=== PATIENT | male | born 1965 | race Caucasian/White ===

== ENCOUNTER 2021-06-17 21:40 | Inpatient (IN) | payer SELFPAY, OTHER ==
[~2021-06-17] VITALS: Ht 182.9 cm; Wt 96.4 kg
[2021-06-17 22:49] LABS: BASOPHILS % 0.2 % (0.0-1.0); HEMATOCRIT 38.7 % (38.2-49.6); HEMOGLOBIN 12.9 g/dL (14.0-18.0); LYMPHOCYTES # (AUTO) 0.8 (1.0-3.2); LYMPHOCYTES % 12.6 % (18.0-39.1); MEAN CORPUSCULAR HEMOGLOBIN 28.9 pg (28-32); MEAN CORPUSCULAR HGB CONC 33.3 g/dL (31-35); MEAN CORPUSCULAR VOLUME 86.6 fL (81-99); MONOCYTES # (AUTO) 0.3 (0.2-0.8); MONOCYTES % 4.1 % (4.4-11.3); NEUTROPHILS # (AUTO) 5.4 (2.1-6.9); NEUTROPHILS % 82.6 % (38.7-80.0); PLATELET COUNT 168 x10e3/uL (140-360); RED BLOOD COUNT 4.47 x10e6/uL (4.3-5.7)
[2021-06-17] MEDS ORDERED: IBUPROFEN 200 MG TAB ONE (22:52)
[2021-06-17] MEDS ORDERED: ACETAMINOPHEN 325 MG TAB ONE (22:52)
[2021-06-17] MEDS ORDERED: IBUPROFEN 600 MG TAB ONE (22:53)
[2021-06-17 23:11] LABS: ALBUMIN 3.1 g/dL (3.5-5.0); ALBUMIN/GLOBULIN RATIO 0.9 (0.8-2.0); ANION GAP 16.5 mmol/L (8-16); CALCIUM 8.5 mg/dL (8.4-10.2); CREATININE, SERUM 1.29 mg/dL (0.72-1.25); POTASSIUM 3.5 mmol/L (3.5-5.1)
[2021-06-17 23:17] LABS: CREATINE KINASE MB 0.8 ng/mL (0-5.0)
[2021-06-18] MEDS ORDERED: DEXTROSE 50% SYRINGE 50 ML IV PRN (09:00)
[2021-06-18] MEDS ORDERED: SODIUM CHLORIDE 0.9% 1000ML 1,000 ML IV ONE (09:15)
[2021-06-18] MEDS: ENOXAPARIN SOD INJ 40 MG/0.4 ML SYR SC SCH ×2 (09:45→16:20)
[2021-06-18] MEDS: CEFTRIAXONE 2 GM in SODIUM CHLORIDE 0.9% 100 ML IV SCH (09:45)
[2021-06-18] MEDS: ZINC SULFATE 220 MG CAP PO SCH (11:05)
[2021-06-18] MEDS: ASCORBIC ACID 500 MG TAB PO SCH ×2 (11:05→16:20)
[2021-06-18] MEDS: ACETAMINOPHEN 325 MG TAB PO PRN (11:05)
[2021-06-18] MEDS ORDERED: ETOMIDATE 2 MG/ML 10 ML INJ IV ONE (12:08)
[2021-06-18] MEDS ORDERED: VECURONIUM BROMIDE FOR INJ 20 MG VIAL ONE (12:08)
[2021-06-18] MEDS ORDERED: SUCCINYLCHOLINE CHLORIDE 20 MG/ML 10ML VIAL ONE (12:08)
[2021-06-18] MEDS ORDERED: MIDAZOLAM HCL 2 MG/2 ML VIAL ONE (12:08)
[2021-06-18] MEDS ORDERED: WATER STERILE 10 ML VIAL ONE (12:08)
[2021-06-18] MEDS: INSULIN REGULAR, HUMAN 100 UNIT/1 ML SQ SCH ×3 (12:09→21:00)
[2021-06-18] MEDS ORDERED: REMDESIVIR 200MG 200 MG IV ONE (14:00)
[2021-06-18] MEDS: FAMOTIDINE 20 MG/2 ML VIAL IV SCH (16:20)
[2021-06-18] MEDS: ZOLPIDEM TARTRATE 5 MG TAB PO PRN (16:20)
[2021-06-19] MEDS: METOPROLOL TARTRATE 50 MG TAB PO SCH ×3 (02:00→17:54)
[2021-06-19] MEDS ORDERED: METOPROLOL TARTRATE 50 MG TAB ONE (02:08)
[2021-06-19] MEDS: ZINC SULFATE 220 MG CAP PO SCH (07:24)
[2021-06-19] MEDS: ENOXAPARIN SOD INJ 40 MG/0.4 ML SYR SC SCH ×2 (07:24→17:54)
[2021-06-19] MEDS: CEFTRIAXONE 2 GM in SODIUM CHLORIDE 0.9% 100 ML IV SCH (07:24)
[2021-06-19] MEDS: ASCORBIC ACID 500 MG TAB PO SCH ×2 (07:24→17:54)
[2021-06-19] MEDS: FAMOTIDINE 20 MG/2 ML VIAL IV SCH ×2 (07:24→17:54)
[2021-06-19] MEDS: INSULIN REGULAR, HUMAN 100 UNIT/1 ML SQ SCH ×4 (07:25→21:00)
[2021-06-19 08:14] LABS: BASOPHILS % 0.3 % (0.0-1.0); EOSINOPHILS % 0.2 % (0.0-6.0); HEMATOCRIT 37.9 % (38.2-49.6); HEMOGLOBIN 12.6 g/dL (14.0-18.0); LYMPHOCYTES # (AUTO) 0.7 (1.0-3.2); LYMPHOCYTES % 10.8 % (18.0-39.1); MEAN CORPUSCULAR HEMOGLOBIN 28.8 pg (28-32); MEAN CORPUSCULAR HGB CONC 33.2 g/dL (31-35); MEAN CORPUSCULAR VOLUME 86.7 fL (81-99); MONOCYTES # (AUTO) 0.2 (0.2-0.8); NEUTROPHILS # (AUTO) 5.1 (2.1-6.9); PLATELET COUNT 208 x10e3/uL (140-360); RED BLOOD COUNT 4.37 x10e6/uL (4.3-5.7); RED CELL DISTRIBUTION WIDTH 12.2 % (11.7-14.4)
[2021-06-19 08:37] LABS: ALBUMIN 2.8 g/dL (3.5-5.0); ALBUMIN/GLOBULIN RATIO 0.8 (0.8-2.0); ANION GAP 17.2 mmol/L (8-16); CALCIUM 8.4 mg/dL (8.4-10.2); CREATININE, SERUM 1.17 mg/dL (0.72-1.25); POTASSIUM 3.2 mmol/L (3.5-5.1)
[2021-06-19] MEDS: REMDESIVIR 100MG 100 MG IV SCH (13:13)
[2021-06-19] MEDS: ZOLPIDEM TARTRATE 5 MG TAB PO PRN (17:54)
[2021-06-19] MEDS: ACETAMINOPHEN 325 MG TAB PO PRN ×2 (17:54→22:30)
[2021-06-19] MEDS ORDERED: BARICITINIB 2 MG TABLET PO SCH (18:30)
[2021-06-19 20:50] VITALS: BP 145/90
[2021-06-19 21:00] VITALS: BP 145/90
[2021-06-19 21:11] VITALS: BP 136/68
[2021-06-19 23:00] VITALS: BP 160/90
[2021-06-20] VITALS (15 sets, daily range): BP systolic 75–144; BP diastolic 48–93
[2021-06-20] MEDS ORDERED: DEXMEDETOMIDINE 200MCG/NS 50ML 50 ML IV SCH
[2021-06-20] MEDS ORDERED: GUAIFENESIN/CODEINE 10 ML CUP PO PRN (04:30)
[2021-06-20 05:23] LABS: BASOPHILS % 0.3 % (0.0-1.0); EOSINOPHILS % 0.4 % (0.0-6.0); HEMOGLOBIN 11.4 g/dL (14.0-18.0); LYMPHOCYTES # (AUTO) 0.8 (1.0-3.2); LYMPHOCYTES % 11.8 % (18.0-39.1); MEAN CORPUSCULAR HEMOGLOBIN 28.9 pg (28-32); MEAN CORPUSCULAR HGB CONC 33.5 g/dL (31-35); MEAN CORPUSCULAR VOLUME 86.3 fL (81-99); MONOCYTES # (AUTO) 0.2 (0.2-0.8); NEUTROPHILS # (AUTO) 5.9 (2.1-6.9); NEUTROPHILS % 83.6 % (38.7-80.0); PLATELET COUNT 251 x10e3/uL (140-360); RED BLOOD COUNT 3.94 x10e6/uL (4.3-5.7); RED CELL DISTRIBUTION WIDTH 12.2 % (11.7-14.4)
[2021-06-20 06:02] LABS: ALBUMIN 2.4 g/dL (3.5-5.0); ALBUMIN/GLOBULIN RATIO 0.8 (0.8-2.0); ANION GAP 15.1 mmol/L (8-16); CALCIUM 7.7 mg/dL (8.4-10.2); CREATININE, SERUM 0.94 mg/dL (0.72-1.25); POTASSIUM 3.1 mmol/L (3.5-5.1)
[2021-06-20] MEDS: INSULIN REGULAR, HUMAN 100 UNIT/1 ML SQ SCH ×4 (07:30→20:54)
[2021-06-20] MEDS: METOPROLOL TARTRATE 50 MG TAB PO SCH ×2 (09:00→17:00)
[2021-06-20] MEDS: BARICITINIB 2 MG TABLET PO SCH (09:00)
[2021-06-20] MEDS: ASCORBIC ACID 500 MG TAB PO SCH ×2 (09:00→17:00)
[2021-06-20] MEDS: ZINC SULFATE 220 MG CAP PO SCH (09:00)
[2021-06-20] MEDS ORDERED: POTASSIUM CHLORIDE 20MEQ/100ML 200 ML IV ONE (09:15)
[2021-06-20] MEDS: FENTANYL 2000MCG/NS 250 250 ML IV SCH ×2 (10:46→20:46)
[2021-06-20] MEDS: MIDAZOLAM HCL 5MG/ML 10ML VIAL 100 ML IV SCH ×2 (10:49→17:54)
[2021-06-20] MEDS: CEFTRIAXONE 2 GM in SODIUM CHLORIDE 0.9% 100 ML IV SCH (11:01)
[2021-06-20] MEDS ORDERED: SODIUM CHLORIDE 0.9% 250ML 250 ML ONE ×2 (11:09→21:47)
[2021-06-20] MEDS: FAMOTIDINE 20 MG/2 ML VIAL IV SCH ×2 (12:01→18:40)
[2021-06-20] MEDS: ENOXAPARIN SOD INJ 40 MG/0.4 ML SYR SC SCH ×2 (12:01→19:39)
[2021-06-20] MEDS ORDERED: LACTATED RINGER'S 500 ML INJ ONE (12:15)
[2021-06-20] MEDS ORDERED: ACETAMINOPHEN 650 MG SUPP PR PRN (12:45)
[2021-06-20] MEDS: ROCURONIUM 1250MG/NS 250 250 ML IV SCH (13:15)
[2021-06-20] MEDS: NOREPINEPHRINE 8 MG/D5W 250 ML 250 ML IV SCH (13:45)
[2021-06-20 15:36] LABS: ABG HCO3 30 mmol/L (22-26); ABG PCO2 46 mmHg (35-45); ABG PH 7.42 (7.35-7.45); ABG PO2 63 mmHg (80-105)
[2021-06-20 15:37] LABS: ABG TCO2 31
[2021-06-20] MEDS: REMDESIVIR 100MG 100 MG IV SCH (20:32)
[2021-06-20] MEDS: DEXAMETHASONE SOD PHOS 10 MG/1 ML VIAL IV SCH (21:59)
[2021-06-21] VITALS (27 sets, daily range): BP systolic 99–135; BP diastolic 61–80
[2021-06-21] MEDS: MIDAZOLAM HCL 5MG/ML 10ML VIAL 100 ML IV SCH ×5 (01:07→23:30)
[2021-06-21] MEDS: FENTANYL 2000MCG/NS 250 250 ML IV SCH ×3 (04:02→22:21)
[2021-06-21 04:55] LABS: BASOPHILS % 0.2 % (0.0-1.0); EOSINOPHILS % 0.2 % (0.0-6.0); HEMATOCRIT 33.2 % (38.2-49.6); HEMOGLOBIN 10.4 g/dL (14.0-18.0); LYMPHOCYTES # (AUTO) 0.5 (1.0-3.2); LYMPHOCYTES % 5.1 % (18.0-39.1); MEAN CORPUSCULAR HEMOGLOBIN 28.4 pg (28-32); MEAN CORPUSCULAR HGB CONC 31.3 g/dL (31-35); MEAN CORPUSCULAR VOLUME 90.7 fL (81-99); MONOCYTES # (AUTO) 0.2 (0.2-0.8); MONOCYTES % 1.8 % (4.4-11.3); NEUTROPHILS # (AUTO) 9.1 (2.1-6.9); NEUTROPHILS % 91.9 % (38.7-80.0); PLATELET COUNT 260 x10e3/uL (140-360); RED BLOOD COUNT 3.66 x10e6/uL (4.3-5.7); RED CELL DISTRIBUTION WIDTH 13.1 % (11.7-14.4)
[2021-06-21 05:37] LABS: ALBUMIN 2.2 g/dL (3.5-5.0); ALBUMIN/GLOBULIN RATIO 0.6 (0.8-2.0); ANION GAP 22.2 mmol/L (8-16); CALCIUM 7.9 mg/dL (8.4-10.2); POTASSIUM 4.2 mmol/L (3.5-5.1)
[2021-06-21] MEDS: ROCURONIUM 1250MG/NS 250 250 ML IV SCH (05:47)
[2021-06-21] MEDS: NOREPINEPHRINE 8 MG/D5W 250 ML 250 ML IV SCH (05:48)
[2021-06-21] MEDS: ENOXAPARIN SOD INJ 40 MG/0.4 ML SYR SC SCH (08:16)
[2021-06-21] MEDS: ASCORBIC ACID 500 MG TAB PO SCH ×2 (08:16→16:05)
[2021-06-21] MEDS: ZINC SULFATE 220 MG CAP PO SCH (08:16)
[2021-06-21] MEDS: FAMOTIDINE 20 MG/2 ML VIAL IV SCH ×2 (08:16→16:04)
[2021-06-21] MEDS: BARICITINIB 2 MG TABLET PO SCH (08:16)
[2021-06-21] MEDS: INSULIN REGULAR, HUMAN 100 UNIT/1 ML SQ SCH ×4 (08:17→20:43)
[2021-06-21] MEDS: METOPROLOL TARTRATE 50 MG TAB PO SCH ×2 (08:26→16:05)
[2021-06-21 08:53] LABS: LYMPHOCYTES % (MANUAL) 1 % (19-48); NEUTROPHILS % (MANUAL) 97 % (40-74); PLATELET ESTIMATE ADEQUATE; PLATELET MORPHOLOGY COMMENT FEW LARGE
[2021-06-21] MEDS ORDERED: SODIUM CHLORIDE 0.9% 250ML 250 ML ONE (09:27)
[2021-06-21] MEDS: CEFTRIAXONE 2 GM in SODIUM CHLORIDE 0.9% 100 ML IV SCH (10:12)
[2021-06-21 12:24] LABS: ALBUMIN 2.1 g/dL (3.5-5.0); ALBUMIN/GLOBULIN RATIO 0.6 (0.8-2.0); CALCIUM 7.8 mg/dL (8.4-10.2); CREATININE, SERUM 3.67 mg/dL (0.72-1.25)
[2021-06-21] MEDS: REMDESIVIR 100MG 100 MG IV SCH (13:37)
[2021-06-21] MEDS ORDERED: HEPARIN 25,000 UNIT 1,500 UNIT in DEXTROSE 5% 250ML 250 ML IV SCH (15:00)
[2021-06-21] MEDS: LACTATED RINGER'S 1,000 ML INJ SCH (16:06)
[2021-06-21 16:31] LABS: ABG HCO3 26 mmol/L (22-26); ABG PCO2 44 mmHg (35-45); ABG PH 7.38 (7.35-7.45); ABG PO2 317 mmHg (80-105); ABG TCO2 27
[2021-06-21 16:52] LABS: INR 1.31; PROTHROMBIN TIME 16.5 seconds (11.9-14.5)
[2021-06-21 16:53] LABS: PARTIAL THROMBOPLASTIN TIME 42.6 seconds (23.8-35.5)
[2021-06-21] MEDS: DEXAMETHASONE SOD PHOS 10 MG/1 ML VIAL IV SCH (20:41)
[2021-06-22] VITALS (24 sets, daily range): BP systolic 110–147; BP diastolic 63–82
[2021-06-22] MEDS: FENTANYL 2000MCG/NS 250 250 ML IV SCH ×2 (04:35→14:07)
[2021-06-22] MEDS: ROCURONIUM 1250MG/NS 250 250 ML IV SCH (04:36)
[2021-06-22] MEDS: MIDAZOLAM HCL 5MG/ML 10ML VIAL 100 ML IV SCH ×3 (05:00→17:41)
[2021-06-22] MEDS: LACTATED RINGER'S 1,000 ML INJ SCH (05:06)
[2021-06-22 06:13] LABS: BASOPHILS % 0.1 % (0.0-1.0); EOSINOPHILS % 0.1 % (0.0-6.0); HEMATOCRIT 30.1 % (38.2-49.6); HEMOGLOBIN 9.7 g/dL (14.0-18.0); LYMPHOCYTES # (AUTO) 0.6 (1.0-3.2); LYMPHOCYTES % 7.1 % (18.0-39.1); MEAN CORPUSCULAR HEMOGLOBIN 28.5 pg (28-32); MEAN CORPUSCULAR HGB CONC 32.2 g/dL (31-35); MEAN CORPUSCULAR VOLUME 88.5 fL (81-99); MONOCYTES # (AUTO) 0.3 (0.2-0.8); MONOCYTES % 3.7 % (4.4-11.3); NEUTROPHILS # (AUTO) 7.5 (2.1-6.9); NEUTROPHILS % 88.2 % (38.7-80.0); PLATELET COUNT 259 x10e3/uL (140-360); RED CELL DISTRIBUTION WIDTH 13.2 % (11.7-14.4)
[2021-06-22] MEDS ORDERED: FUROSEMIDE INJ 10 MG/ML 4 ML VIAL IV ONE (06:28)
[2021-06-22 06:34] LABS: CLARITY,URINE CLOUDY (CLEAR); COLOR,URINE YELLOW (YELLOW); LEUKOCYTE ESTERASE ,URINE NEGATIVE (NEGATIVE); NITRITE,URINE NEGATIVE (NEGATIVE)
[2021-06-22 06:35] LABS: KETONES,URINE NEGATIVE (NEGATIVE); PROTEIN,URINE DIPSTICK 1+ (NEGATIVE); URINE UROBILINOGEN 0.2 mg/dL (0.2 - 1)
[2021-06-22 06:43] LABS: ALBUMIN/GLOBULIN RATIO 0.6 (0.8-2.0); ANION GAP 19.7 mmol/L (8-16); CREATININE, SERUM 4.81 mg/dL (0.72-1.25); POTASSIUM 3.7 mmol/L (3.5-5.1)
[2021-06-22 06:53] LABS: BACTERIA,URINE RARE /HPF; EPITHELIAL CELLS,URINE FEW /LPF
[2021-06-22] MEDS: INSULIN REGULAR, HUMAN 100 UNIT/1 ML SQ SCH (07:10)
[2021-06-22 08:23] LABS: EOSINOPHIL SMEAR,URINE NONE SEEN (NONE SEEN)
[2021-06-22 08:47] LABS: ABG HCO3 25 mmol/L (22-26); ABG PCO2 38 mmHg (35-45); ABG PH 7.42 (7.35-7.45); ABG PO2 194 mmHg (80-105); ABG TCO2 26
[2021-06-22] MEDS ORDERED: LACTATED RINGER'S 1,000 ML INJ ONE (10:00)
[2021-06-22] MEDS ORDERED: FUROSEMIDE INJ 10 MG/ML 4 ML VIAL IV NR (10:00)
[2021-06-22] MEDS ORDERED: INSULIN GLARGINE 100 UNITS/ML VIAL SQ NR (10:15)
[2021-06-22] MEDS ORDERED: DEXTROSE 50% SYRINGE 50 ML IV PRN (10:15)
[2021-06-22] MEDS: ASCORBIC ACID 500 MG TAB PO SCH ×2 (11:18→17:23)
[2021-06-22] MEDS: ZINC SULFATE 220 MG CAP PO SCH (11:18)
[2021-06-22] MEDS: METOPROLOL TARTRATE 50 MG TAB PO SCH ×2 (11:18→17:24)
[2021-06-22] MEDS: BARICITINIB 2 MG TABLET PO SCH (11:18)
[2021-06-22] MEDS: FAMOTIDINE 20 MG/2 ML VIAL IV SCH ×2 (11:18→17:23)
[2021-06-22] MEDS: CEFTRIAXONE 2 GM in SODIUM CHLORIDE 0.9% 100 ML IV SCH (11:18)
[2021-06-22] MEDS: HEPARIN SOD (PORCINE) 5,000 UNIT/ML VIAL SC SCH ×2 (11:19→20:50)
[2021-06-22] MEDS: INSULIN LISPRO 100 UNIT/1 ML 3ML VIAL SQ SCH ×3 (12:00→20:52)
[2021-06-22] MEDS: NOREPINEPHRINE 8 MG/D5W 250 ML 250 ML IV SCH (13:45)
[2021-06-22] MEDS: INSULIN GLARGINE 100 UNITS/ML VIAL SQ SCH (17:40)
[2021-06-22] MEDS: DEXAMETHASONE SOD PHOS 10 MG/1 ML VIAL IV SCH (20:42)
[2021-06-23] VITALS (22 sets, daily range): BP systolic 115–147; BP diastolic 57–93
[2021-06-23] MEDS: FENTANYL 2000MCG/NS 250 250 ML IV SCH ×2 (04:04→18:18)
[2021-06-23] MEDS: MIDAZOLAM HCL 5MG/ML 10ML VIAL 100 ML IV SCH ×4 (05:15→21:26)
[2021-06-23 05:52] LABS: BASOPHILS % 0.2 % (0.0-1.0); HEMOGLOBIN 7.9 g/dL (14.0-18.0); LYMPHOCYTES # (AUTO) 0.7 (1.0-3.2); LYMPHOCYTES % 10.2 % (18.0-39.1); MEAN CORPUSCULAR HEMOGLOBIN 28.6 pg (28-32); MEAN CORPUSCULAR HGB CONC 31.6 g/dL (31-35); MEAN CORPUSCULAR VOLUME 90.6 fL (81-99); MONOCYTES # (AUTO) 0.3 (0.2-0.8); MONOCYTES % 4.8 % (4.4-11.3); NEUTROPHILS # (AUTO) 5.3 (2.1-6.9); PLATELET COUNT 232 x10e3/uL (140-360); RED BLOOD COUNT 2.76 x10e6/uL (4.3-5.7); RED CELL DISTRIBUTION WIDTH 13.3 % (11.7-14.4)
[2021-06-23 06:04] LABS: ALBUMIN 1.6 g/dL (3.5-5.0); ALBUMIN/GLOBULIN RATIO 0.7 (0.8-2.0); ANION GAP 15.2 mmol/L (8-16); CREATININE, SERUM 4.02 mg/dL (0.72-1.25); POTASSIUM 3.2 mmol/L (3.5-5.1)
[2021-06-23] MEDS: INSULIN LISPRO 100 UNIT/1 ML 3ML VIAL SQ SCH ×4 (06:12→23:59)
[2021-06-23 06:15] LABS: CALCIUM 6.5 mg/dL (8.4-10.2)
[2021-06-23 06:20] LABS: MAGNESIUM 2.3 MG/DL (1.3-2.1)
[2021-06-23 06:41] LABS: THYROID STIMULATING HORMONE 0.103 uIU/mL (0.350-4.940)
[2021-06-23] MEDS: METOPROLOL TARTRATE 50 MG TAB PO SCH ×2 (08:50→17:00)
[2021-06-23] MEDS: FAMOTIDINE 20 MG/2 ML VIAL IV SCH ×2 (08:50→17:00)
[2021-06-23] MEDS: ASCORBIC ACID 500 MG TAB PO SCH ×2 (08:50→18:21)
[2021-06-23] MEDS: ZINC SULFATE 220 MG CAP PO SCH (08:50)
[2021-06-23] MEDS: HEPARIN SOD (PORCINE) 5,000 UNIT/ML VIAL SC SCH ×2 (09:26→21:23)
[2021-06-23 09:33] LABS: ABG HCO3 23 mmol/L (22-26); ABG PCO2 37 mmHg (35-45); ABG PH 7.41 (7.35-7.45); ABG PO2 83 mmHg (80-105); ABG TCO2 24
[2021-06-23] MEDS ORDERED: POTASSIUM CHLORIDE 20MEQ/100ML 100 ML IV ONE (12:13)
[2021-06-23] MEDS: NOREPINEPHRINE 8 MG/D5W 250 ML 250 ML IV SCH (13:45)
[2021-06-23] MEDS: CALCIUM CARBONATE 500 MG CHEWABLE TABS PO SCH ×2 (15:09→21:20)
[2021-06-23] MEDS: DEXAMETHASONE SOD PHOS 10 MG/1 ML VIAL IV SCH (21:20)
[2021-06-23] MEDS: INSULIN GLARGINE 100 UNITS/ML VIAL SQ SCH (21:24)
[2021-06-24] VITALS (29 sets, daily range): BP systolic 101–152; BP diastolic 59–91
[2021-06-24] MEDS: MIDAZOLAM HCL 5MG/ML 10ML VIAL 100 ML IV SCH ×4 (04:30→23:26)
[2021-06-24 05:41] LABS: BASOPHILS % 0.1 % (0.0-1.0); HEMATOCRIT 30.2 % (38.2-49.6); HEMOGLOBIN 9.4 g/dL (14.0-18.0); LYMPHOCYTES # (AUTO) 0.4 (1.0-3.2); LYMPHOCYTES % 4.7 % (18.0-39.1); MEAN CORPUSCULAR HEMOGLOBIN 28.7 pg (28-32); MEAN CORPUSCULAR HGB CONC 31.1 g/dL (31-35); MEAN CORPUSCULAR VOLUME 92.1 fL (81-99); MONOCYTES # (AUTO) 0.5 (0.2-0.8); MONOCYTES % 6.2 % (4.4-11.3); NEUTROPHILS # (AUTO) 6.7 (2.1-6.9); NEUTROPHILS % 84.2 % (38.7-80.0); PLATELET COUNT 274 x10e3/uL (140-360); RED BLOOD COUNT 3.28 x10e6/uL (4.3-5.7); RED CELL DISTRIBUTION WIDTH 13.5 % (11.7-14.4)
[2021-06-24] MEDS: INSULIN LISPRO 100 UNIT/1 ML 3ML VIAL SQ SCH ×4 (06:26→23:39)
[2021-06-24 06:37] LABS: ALBUMIN 2.1 g/dL (3.5-5.0); ALBUMIN/GLOBULIN RATIO 0.8 (0.8-2.0); ANION GAP 16.7 mmol/L (8-16); CALCIUM 7.8 mg/dL (8.4-10.2); CREATININE, SERUM 4.42 mg/dL (0.72-1.25); POTASSIUM 4.7 mmol/L (3.5-5.1)
[2021-06-24] MEDS: METOPROLOL TARTRATE 50 MG TAB PO SCH ×2 (09:00→17:00)
[2021-06-24] MEDS: ASCORBIC ACID 500 MG TAB PO SCH ×2 (09:11→17:23)
[2021-06-24] MEDS: FAMOTIDINE 20 MG/2 ML VIAL IV SCH ×2 (09:11→17:23)
[2021-06-24] MEDS: CALCIUM CARBONATE 500 MG CHEWABLE TABS PO SCH ×3 (09:11→21:44)
[2021-06-24] MEDS: ZINC SULFATE 220 MG CAP PO SCH (09:12)
[2021-06-24] MEDS: HEPARIN SOD (PORCINE) 5,000 UNIT/ML VIAL SC SCH ×2 (09:14→21:57)
[2021-06-24 10:18] LABS: ABG HCO3 24 mmol/L (22-26); ABG PCO2 43 mmHg (35-45); ABG PH 7.35 (7.35-7.45); ABG PO2 56 mmHg (80-105); ABG TCO2 25
[2021-06-24] MEDS: FENTANYL 2000MCG/NS 250 250 ML IV SCH (11:10)
[2021-06-24] MEDS: NOREPINEPHRINE 8 MG/D5W 250 ML 250 ML IV SCH (13:45)
[2021-06-24] MEDS ORDERED: SODIUM CHLORIDE 0.9% 1000ML 2,000 ML ONE (17:23)
[2021-06-24] MEDS ORDERED: SODIUM CHLORIDE 0.9% 1000ML 2,000 ML IV PRN (17:45)
[2021-06-24] MEDS ORDERED: MANNITOL 25% 12.5GM/50 ML VIAL IV PRN (17:45)
[2021-06-24] MEDS ORDERED: HEPARIN SOD (PORCINE) 1000 UNIT/ML SDV IV PRN (17:45)
[2021-06-24] MEDS: INSULIN GLARGINE 100 UNITS/ML VIAL SQ SCH (20:42)
[2021-06-24] MEDS: DEXAMETHASONE SOD PHOS 10 MG/1 ML VIAL IV SCH (21:44)
[2021-06-25] VITALS (25 sets, daily range): BP systolic 92–186; BP diastolic 58–100
[2021-06-25] MEDS: ACETAMINOPHEN 325 MG TAB PO PRN (05:04)
[2021-06-25 05:17] LABS: BASOPHILS % 0.1 % (0.0-1.0); EOSINOPHILS % 0.1 % (0.0-6.0); HEMATOCRIT 32.7 % (38.2-49.6); HEMOGLOBIN 10.3 g/dL (14.0-18.0); LYMPHOCYTES # (AUTO) 0.3 (1.0-3.2); LYMPHOCYTES % 3.2 % (18.0-39.1); MEAN CORPUSCULAR HEMOGLOBIN 28.7 pg (28-32); MEAN CORPUSCULAR HGB CONC 31.5 g/dL (31-35); MEAN CORPUSCULAR VOLUME 91.1 fL (81-99); MONOCYTES # (AUTO) 0.5 (0.2-0.8); MONOCYTES % 5.4 % (4.4-11.3); NEUTROPHILS # (AUTO) 7.6 (2.1-6.9); PLATELET COUNT 271 x10e3/uL (140-360); RED BLOOD COUNT 3.59 x10e6/uL (4.3-5.7); RED CELL DISTRIBUTION WIDTH 13.3 % (11.7-14.4)
[2021-06-25 05:21] LABS: ALBUMIN 2.8 g/dL (3.5-5.0); ALBUMIN/GLOBULIN RATIO 1.2 (0.8-2.0); ANION GAP 15.6 mmol/L (8-16); CREATININE, SERUM 2.97 mg/dL (0.72-1.25); POTASSIUM 4.6 mmol/L (3.5-5.1)
[2021-06-25] MEDS: INSULIN LISPRO 100 UNIT/1 ML 3ML VIAL SQ SCH ×4 (06:12→23:52)
[2021-06-25] MEDS: FENTANYL 2000MCG/NS 250 250 ML IV SCH ×2 (08:51→18:12)
[2021-06-25] MEDS: PROPOFOL IV EMULSION 10MG/ML 100 ML IV SCH ×3 (08:51→23:40)
[2021-06-25] MEDS: FAMOTIDINE 20 MG/2 ML VIAL IV SCH ×2 (08:52→17:14)
[2021-06-25] MEDS: METOPROLOL TARTRATE 50 MG TAB PO SCH ×2 (08:52→17:00)
[2021-06-25] MEDS: CALCIUM CARBONATE 500 MG CHEWABLE TABS PO SCH ×3 (08:52→21:30)
[2021-06-25] MEDS: ZINC SULFATE 220 MG CAP PO SCH (08:53)
[2021-06-25] MEDS: ASCORBIC ACID 500 MG TAB PO SCH ×2 (08:53→17:14)
[2021-06-25] MEDS: HEPARIN SOD (PORCINE) 5,000 UNIT/ML VIAL SC SCH ×2 (08:53→21:32)
[2021-06-25 09:02] LABS: ABG HCO3 26 mmol/L (22-26); ABG PCO2 47 mmHg (35-45); ABG PH 7.35 (7.35-7.45); ABG PO2 71 mmHg (80-105); ABG TCO2 27
[2021-06-25] MEDS: MIDAZOLAM HCL 5MG/ML 10ML VIAL 100 ML IV SCH ×2 (10:14→18:12)
[2021-06-25] MEDS: NOREPINEPHRINE 8 MG/D5W 250 ML 250 ML IV SCH (13:45)
[2021-06-25] MEDS ORDERED: GUAIFENESIN/CODEINE 5 ML LIQD PO PRN (18:00)
[2021-06-25] MEDS: DEXAMETHASONE SOD PHOS 10 MG/1 ML VIAL IV SCH (21:29)
[2021-06-25] MEDS: INSULIN GLARGINE 100 UNITS/ML VIAL SQ SCH (21:32)
[2021-06-26] VITALS (28 sets, daily range): BP systolic 94–135; BP diastolic 56–79
[2021-06-26] MEDS: FENTANYL 2000MCG/NS 250 250 ML IV SCH ×3 (01:17→16:34)
[2021-06-26] MEDS: MIDAZOLAM HCL 5MG/ML 10ML VIAL 100 ML IV SCH ×4 (02:45→19:38)
[2021-06-26] MEDS: PROPOFOL IV EMULSION 10MG/ML 100 ML IV SCH ×4 (05:55→23:07)
[2021-06-26 06:20] LABS: BASOPHILS % 0.1 % (0.0-1.0); EOSINOPHILS % 0.1 % (0.0-6.0); HEMOGLOBIN 8.6 g/dL (14.0-18.0); LYMPHOCYTES # (AUTO) 0.3 (1.0-3.2); MEAN CORPUSCULAR HEMOGLOBIN 28.6 pg (28-32); MEAN CORPUSCULAR HGB CONC 30.7 g/dL (31-35); MONOCYTES # (AUTO) 0.4 (0.2-0.8); MONOCYTES % 4.7 % (4.4-11.3); NEUTROPHILS # (AUTO) 7.4 (2.1-6.9); NEUTROPHILS % 86.4 % (38.7-80.0); PLATELET COUNT 215 x10e3/uL (140-360); RED BLOOD COUNT 3.01 x10e6/uL (4.3-5.7); RED CELL DISTRIBUTION WIDTH 13.3 % (11.7-14.4)
[2021-06-26] MEDS: INSULIN LISPRO 100 UNIT/1 ML 3ML VIAL SQ SCH ×3 (06:22→18:06)
[2021-06-26 07:55] LABS: ALBUMIN 2.5 g/dL (3.5-5.0); ANION GAP 15.5 mmol/L (8-16); CALCIUM 7.8 mg/dL (8.4-10.2); CREATININE, SERUM 2.5 mg/dL (0.72-1.25); POTASSIUM 4.5 mmol/L (3.5-5.1)
[2021-06-26] MEDS: METOPROLOL TARTRATE 50 MG TAB PO SCH ×2 (08:59→16:06)
[2021-06-26] MEDS: ZINC SULFATE 220 MG CAP PO SCH (09:23)
[2021-06-26] MEDS: ASCORBIC ACID 500 MG TAB PO SCH ×2 (09:23→17:03)
[2021-06-26] MEDS: FAMOTIDINE 20 MG/2 ML VIAL IV SCH ×2 (09:23→17:03)
[2021-06-26] MEDS: CALCIUM CARBONATE 500 MG CHEWABLE TABS PO SCH ×3 (09:23→21:32)
[2021-06-26 09:35] LABS: ABG PCO2 45 mmHg (35-45); ABG PH 7.42 (7.35-7.45); ABG PO2 133 mmHg (80-105)
[2021-06-26 09:36] LABS: ABG HCO3 29 mmol/L (22-26); ABG TCO2 30
[2021-06-26] MEDS: HEPARIN SOD (PORCINE) 5,000 UNIT/ML VIAL SC SCH ×2 (12:24→21:35)
[2021-06-26] MEDS: NOREPINEPHRINE 8 MG/D5W 250 ML 250 ML IV SCH (13:45)
[2021-06-26] MEDS: DEXAMETHASONE SOD PHOS 10 MG/1 ML VIAL IV SCH (21:31)
[2021-06-26] MEDS: INSULIN GLARGINE 100 UNITS/ML VIAL SQ SCH (21:34)
[2021-06-26] MEDS: ACETAMINOPHEN 325 MG TAB PO PRN (23:27)
[2021-06-27] VITALS (24 sets, daily range): BP systolic 104–140; BP diastolic 49–81
[2021-06-27] MEDS: INSULIN LISPRO 100 UNIT/1 ML 3ML VIAL SQ SCH ×5 (00:35→23:30)
[2021-06-27] MEDS: FENTANYL 2000MCG/NS 250 250 ML IV SCH ×3 (01:32→19:30)
[2021-06-27] MEDS: PROPOFOL IV EMULSION 10MG/ML 100 ML IV SCH ×6 (03:26→23:48)
[2021-06-27] MEDS: MIDAZOLAM HCL 5MG/ML 10ML VIAL 100 ML IV SCH ×3 (04:04→19:30)
[2021-06-27 06:42] LABS: BASOPHILS % 0.1 % (0.0-1.0); EOSINOPHILS % 0.1 % (0.0-6.0); HEMATOCRIT 28.7 % (38.2-49.6); HEMOGLOBIN 8.8 g/dL (14.0-18.0); LYMPHOCYTES # (AUTO) 0.5 (1.0-3.2); LYMPHOCYTES % 3.6 % (18.0-39.1); MEAN CORPUSCULAR HEMOGLOBIN 28.3 pg (28-32); MEAN CORPUSCULAR HGB CONC 30.7 g/dL (31-35); MEAN CORPUSCULAR VOLUME 92.3 fL (81-99); MONOCYTES # (AUTO) 0.5 (0.2-0.8); NEUTROPHILS # (AUTO) 11.1 (2.1-6.9); NEUTROPHILS % 87.5 % (38.7-80.0); PLATELET COUNT 266 x10e3/uL (140-360); RED BLOOD COUNT 3.11 x10e6/uL (4.3-5.7); RED CELL DISTRIBUTION WIDTH 13.3 % (11.7-14.4)
[2021-06-27 07:33] LABS: ALBUMIN 2.6 g/dL (3.5-5.0); ALBUMIN/GLOBULIN RATIO 0.9 (0.8-2.0); ANION GAP 15.6 mmol/L (8-16); CALCIUM 7.9 mg/dL (8.4-10.2); CREATININE, SERUM 2.13 mg/dL (0.72-1.25); POTASSIUM 4.6 mmol/L (3.5-5.1)
[2021-06-27] MEDS: METOPROLOL TARTRATE 50 MG TAB PO SCH ×2 (08:21→17:00)
[2021-06-27] MEDS: FAMOTIDINE 20 MG/2 ML VIAL IV SCH ×2 (08:21→17:06)
[2021-06-27] MEDS: CALCIUM CARBONATE 500 MG CHEWABLE TABS PO SCH ×3 (08:22→21:15)
[2021-06-27] MEDS: ZINC SULFATE 220 MG CAP PO SCH (08:22)
[2021-06-27] MEDS: ASCORBIC ACID 500 MG TAB PO SCH ×2 (08:22→17:06)
[2021-06-27] MEDS: HEPARIN SOD (PORCINE) 5,000 UNIT/ML VIAL SC SCH (08:31)
[2021-06-27] MEDS: NOREPINEPHRINE 8 MG/D5W 250 ML 250 ML IV SCH (13:01)
[2021-06-27] MEDS ORDERED: HEPARIN SOD (PORCINE) 1000 UNIT/ML SDV IV ONE (19:20)
[2021-06-27] MEDS ORDERED: HEPARIN 25,000 UNIT 1,500 UNIT in DEXTROSE 5% 250ML 250 ML IV SCH (19:30)
[2021-06-27] MEDS: INSULIN GLARGINE 100 UNITS/ML VIAL SQ SCH (21:15)
[2021-06-28] VITALS (27 sets, daily range): BP systolic 97–150; BP diastolic 50–97
[2021-06-28] MEDS: PROPOFOL IV EMULSION 10MG/ML 100 ML IV SCH ×6 (02:41→21:55)
[2021-06-28 06:08] LABS: BASOPHILS % 0.1 % (0.0-1.0); EOSINOPHILS # (AUTO) 0.1 (0.0-0.4); HEMATOCRIT 27.7 % (38.2-49.6); HEMOGLOBIN 8.4 g/dL (14.0-18.0); LYMPHOCYTES # (AUTO) 1.2 (1.0-3.2); LYMPHOCYTES % 9.1 % (18.0-39.1); MEAN CORPUSCULAR HEMOGLOBIN 28.7 pg (28-32); MEAN CORPUSCULAR HGB CONC 30.3 g/dL (31-35); MEAN CORPUSCULAR VOLUME 94.5 fL (81-99); MONOCYTES # (AUTO) 0.9 (0.2-0.8); MONOCYTES % 6.9 % (4.4-11.3); NEUTROPHILS # (AUTO) 9.9 (2.1-6.9); NEUTROPHILS % 78.4 % (38.7-80.0); PLATELET COUNT 300 x10e3/uL (140-360); RED BLOOD COUNT 2.93 x10e6/uL (4.3-5.7); RED CELL DISTRIBUTION WIDTH 13.6 % (11.7-14.4)
[2021-06-28] MEDS: FENTANYL 2000MCG/NS 250 250 ML IV SCH (06:15)
[2021-06-28] MEDS: INSULIN LISPRO 100 UNIT/1 ML 3ML VIAL SQ SCH ×3 (06:15→19:12)
[2021-06-28 06:36] LABS: ALBUMIN 2.6 g/dL (3.5-5.0); ANION GAP 14.6 mmol/L (8-16); CALCIUM 7.8 mg/dL (8.4-10.2); CREATININE, SERUM 2.39 mg/dL (0.72-1.25); POTASSIUM 3.6 mmol/L (3.5-5.1)
[2021-06-28] MEDS: MIDAZOLAM HCL 5MG/ML 10ML VIAL 100 ML IV SCH (08:22)
[2021-06-28] MEDS: METOPROLOL TARTRATE 50 MG TAB PO SCH ×2 (09:00→17:00)
[2021-06-28 09:25] LABS: ABG PCO2 38 mmHg (35-45); ABG PH 7.44 (7.35-7.45); ABG PO2 94 mmHg (80-105)
[2021-06-28 09:26] LABS: ABG HCO3 26 mmol/L (22-26); ABG TCO2 27
[2021-06-28] MEDS: FAMOTIDINE 20 MG/2 ML VIAL IV SCH ×2 (09:38→17:21)
[2021-06-28] MEDS: ASCORBIC ACID 500 MG TAB PO SCH ×2 (09:39→17:21)
[2021-06-28] MEDS: CALCIUM CARBONATE 500 MG CHEWABLE TABS PO SCH ×3 (09:39→21:23)
[2021-06-28] MEDS: ZINC SULFATE 220 MG CAP PO SCH (09:39)
[2021-06-28] MEDS: NOREPINEPHRINE 8 MG/D5W 250 ML 250 ML IV SCH (13:10)
[2021-06-28] MEDS: HEPARIN 25,000 UNIT 1,500 UNIT in DEXTROSE 5% 250ML 250 ML IV SCH (18:41)
[2021-06-28] MEDS: INSULIN GLARGINE 100 UNITS/ML VIAL SQ SCH (21:24)
[2021-06-29] VITALS (26 sets, daily range): BP systolic 119–157; BP diastolic 67–93
[2021-06-29] MEDS: INSULIN LISPRO 100 UNIT/1 ML 3ML VIAL SQ SCH ×5 (00:06→23:58)
[2021-06-29] MEDS: PROPOFOL IV EMULSION 10MG/ML 100 ML IV SCH ×8 (00:31→21:33)
[2021-06-29] MEDS: FENTANYL 2000MCG/NS 250 250 ML IV SCH (00:36)
[2021-06-29] MEDS: MIDAZOLAM HCL 5MG/ML 10ML VIAL 100 ML IV SCH (02:49)
[2021-06-29 06:46] LABS: BASOPHILS % 0.2 % (0.0-1.0); EOSINOPHILS # (AUTO) 0.1 (0.0-0.4); EOSINOPHILS % 0.8 % (0.0-6.0); HEMATOCRIT 30.6 % (38.2-49.6); HEMOGLOBIN 9.6 g/dL (14.0-18.0); LYMPHOCYTES # (AUTO) 1.2 (1.0-3.2); LYMPHOCYTES % 6.6 % (18.0-39.1); MEAN CORPUSCULAR HGB CONC 31.4 g/dL (31-35); MEAN CORPUSCULAR VOLUME 92.4 fL (81-99); MONOCYTES # (AUTO) 1.4 (0.2-0.8); MONOCYTES % 7.9 % (4.4-11.3); PLATELET COUNT 356 x10e3/uL (140-360); RED BLOOD COUNT 3.31 x10e6/uL (4.3-5.7); RED CELL DISTRIBUTION WIDTH 13.7 % (11.7-14.4)
[2021-06-29 07:03] LABS: ALBUMIN 2.7 g/dL (3.5-5.0); ALBUMIN/GLOBULIN RATIO 0.8 (0.8-2.0); ANION GAP 18.2 mmol/L (8-16); CALCIUM 8.3 mg/dL (8.4-10.2); CREATININE, SERUM 2.41 mg/dL (0.72-1.25); POTASSIUM 4.2 mmol/L (3.5-5.1)
[2021-06-29] MEDS: FAMOTIDINE 20 MG/2 ML VIAL IV SCH ×2 (08:58→18:57)
[2021-06-29] MEDS: METOPROLOL TARTRATE 50 MG TAB PO SCH ×2 (08:58→17:00)
[2021-06-29] MEDS: CALCIUM CARBONATE 500 MG CHEWABLE TABS PO SCH ×3 (08:59→20:43)
[2021-06-29] MEDS: ZINC SULFATE 220 MG CAP PO SCH (09:00)
[2021-06-29] MEDS: ASCORBIC ACID 500 MG TAB PO SCH ×2 (09:00→18:57)
[2021-06-29] MEDS: HEPARIN 25,000 UNIT 1,500 UNIT in DEXTROSE 5% 250ML 250 ML IV SCH ×2 (11:17→19:07)
[2021-06-29] MEDS: NOREPINEPHRINE 8 MG/D5W 250 ML 250 ML IV SCH (16:55)
[2021-06-29 18:22] LABS: BASOPHILS % 0.2 % (0.0-1.0); EOSINOPHILS # (AUTO) 0.1 (0.0-0.4); EOSINOPHILS % 0.5 % (0.0-6.0); HEMATOCRIT 33.7 % (38.2-49.6); HEMOGLOBIN 10.5 g/dL (14.0-18.0); LYMPHOCYTES # (AUTO) 0.7 (1.0-3.2); LYMPHOCYTES % 3.8 % (18.0-39.1); MEAN CORPUSCULAR HEMOGLOBIN 28.9 pg (28-32); MEAN CORPUSCULAR HGB CONC 31.2 g/dL (31-35); MEAN CORPUSCULAR VOLUME 92.8 fL (81-99); MONOCYTES # (AUTO) 1.5 (0.2-0.8); MONOCYTES % 7.8 % (4.4-11.3); NEUTROPHILS # (AUTO) 16.4 (2.1-6.9); NEUTROPHILS % 84.2 % (38.7-80.0); PLATELET COUNT 399 x10e3/uL (140-360); RED BLOOD COUNT 3.63 x10e6/uL (4.3-5.7); RED CELL DISTRIBUTION WIDTH 13.9 % (11.7-14.4)
[2021-06-29 18:36] LABS: AMYLASE 57 U/L (25-125); LIPASE 58 U/L (8-78)
[2021-06-29] MEDS: INSULIN GLARGINE 100 UNITS/ML VIAL SQ SCH (20:44)
[2021-06-30] VITALS (25 sets, daily range): BP systolic 123–183; BP diastolic 56–99
[2021-06-30] MEDS: PROPOFOL IV EMULSION 10MG/ML 100 ML IV SCH ×7 (00:58→22:25)
[2021-06-30] MEDS: HEPARIN 25,000 UNIT 1,500 UNIT in DEXTROSE 5% 250ML 250 ML IV SCH ×3 (01:40→20:55)
[2021-06-30] MEDS: INSULIN LISPRO 100 UNIT/1 ML 3ML VIAL SQ SCH ×3 (05:48→18:46)
[2021-06-30 06:46] LABS: BASOPHILS % 0.1 % (0.0-1.0); EOSINOPHILS # (AUTO) 0.1 (0.0-0.4); EOSINOPHILS % 0.8 % (0.0-6.0); HEMATOCRIT 30.7 % (38.2-49.6); HEMOGLOBIN 9.3 g/dL (14.0-18.0); LYMPHOCYTES # (AUTO) 0.8 (1.0-3.2); LYMPHOCYTES % 4.9 % (18.0-39.1); MEAN CORPUSCULAR HEMOGLOBIN 28.1 pg (28-32); MEAN CORPUSCULAR HGB CONC 30.3 g/dL (31-35); MEAN CORPUSCULAR VOLUME 92.7 fL (81-99); MONOCYTES # (AUTO) 1.4 (0.2-0.8); MONOCYTES % 9.1 % (4.4-11.3); NEUTROPHILS # (AUTO) 12.8 (2.1-6.9); PLATELET COUNT 374 x10e3/uL (140-360); RED BLOOD COUNT 3.31 x10e6/uL (4.3-5.7); RED CELL DISTRIBUTION WIDTH 13.9 % (11.7-14.4)
[2021-06-30 07:17] LABS: ALBUMIN 2.9 g/dL (3.5-5.0); ALBUMIN/GLOBULIN RATIO 0.8 (0.8-2.0); ANION GAP 19.6 mmol/L (8-16); CALCIUM 8.9 mg/dL (8.4-10.2); CREATININE, SERUM 2.93 mg/dL (0.72-1.25); POTASSIUM 4.6 mmol/L (3.5-5.1)
[2021-06-30] MEDS: METOPROLOL TARTRATE 50 MG TAB PO SCH ×2 (09:00→15:51)
[2021-06-30] MEDS: FAMOTIDINE 20 MG/2 ML VIAL IV SCH ×2 (09:24→17:00)
[2021-06-30] MEDS: CALCIUM CARBONATE 500 MG CHEWABLE TABS PO SCH ×3 (09:25→21:08)
[2021-06-30] MEDS: ASCORBIC ACID 500 MG TAB PO SCH ×2 (09:25→17:00)
[2021-06-30] MEDS: ZINC SULFATE 220 MG CAP PO SCH (09:25)
[2021-06-30 10:32] LABS: ABG HCO3 29 mmol/L (22-26); ABG PCO2 55 mmHg (35-45); ABG PH 7.33 (7.35-7.45); ABG PO2 94 mmHg (80-105); ABG TCO2 30
[2021-06-30] MEDS: LORAZEPAM INJ 2 MG/ML VIAL IV PRN ×2 (13:18→21:33)
[2021-06-30] MEDS: INSULIN GLARGINE 100 UNITS/ML VIAL SQ SCH (21:09)
[2021-07-01] VITALS (24 sets, daily range): BP systolic 102–161; BP diastolic 59–92
[2021-07-01] MEDS: INSULIN LISPRO 100 UNIT/1 ML 3ML VIAL SQ SCH ×4 (00:16→18:15)
[2021-07-01] MEDS: PROPOFOL IV EMULSION 10MG/ML 100 ML IV SCH ×5 (01:45→21:20)
[2021-07-01] MEDS: LORAZEPAM INJ 2 MG/ML VIAL IV PRN ×3 (02:50→19:25)
[2021-07-01 06:18] LABS: BASOPHILS % 0.1 % (0.0-1.0); EOSINOPHILS # (AUTO) 0.1 (0.0-0.4); EOSINOPHILS % 0.9 % (0.0-6.0); HEMATOCRIT 28.9 % (38.2-49.6); HEMOGLOBIN 8.7 g/dL (14.0-18.0); LYMPHOCYTES # (AUTO) 0.9 (1.0-3.2); MEAN CORPUSCULAR HEMOGLOBIN 28.3 pg (28-32); MEAN CORPUSCULAR HGB CONC 30.1 g/dL (31-35); MEAN CORPUSCULAR VOLUME 94.1 fL (81-99); MONOCYTES # (AUTO) 1.2 (0.2-0.8); MONOCYTES % 8.4 % (4.4-11.3); NEUTROPHILS # (AUTO) 11.9 (2.1-6.9); NEUTROPHILS % 81.6 % (38.7-80.0); PLATELET COUNT 358 x10e3/uL (140-360); RED BLOOD COUNT 3.07 x10e6/uL (4.3-5.7); RED CELL DISTRIBUTION WIDTH 14.2 % (11.7-14.4)
[2021-07-01 07:00] LABS: ALBUMIN 2.8 g/dL (3.5-5.0); ALBUMIN/GLOBULIN RATIO 0.8 (0.8-2.0); ANION GAP 22.8 mmol/L (8-16); CALCIUM 8.9 mg/dL (8.4-10.2); POTASSIUM 4.8 mmol/L (3.5-5.1)
[2021-07-01 07:27] LABS: CREATININE, SERUM 4.39 mg/dL (0.72-1.25)
[2021-07-01] MEDS: FAMOTIDINE 20 MG/2 ML VIAL IV SCH ×2 (09:00→16:57)
[2021-07-01] MEDS: ASCORBIC ACID 500 MG TAB PO SCH ×2 (09:00→16:57)
[2021-07-01] MEDS: METOPROLOL TARTRATE 50 MG TAB PO SCH ×3 (09:00→18:57)
[2021-07-01] MEDS: ZINC SULFATE 220 MG CAP PO SCH (09:00)
[2021-07-01] MEDS: CALCIUM CARBONATE 500 MG CHEWABLE TABS PO SCH ×3 (09:00→20:51)
[2021-07-01] MEDS: HEPARIN 25,000 UNIT 1,500 UNIT in DEXTROSE 5% 250ML 250 ML IV SCH ×2 (20:29→23:30)
[2021-07-01] MEDS: INSULIN GLARGINE 100 UNITS/ML VIAL SQ SCH (20:52)
[2021-07-01] MEDS: ACETAMINOPHEN 325 MG TAB PO PRN (20:53)
[2021-07-02] VITALS (22 sets, daily range): BP systolic 101–156; BP diastolic 52–91
[2021-07-02] MEDS: INSULIN LISPRO 100 UNIT/1 ML 3ML VIAL SQ SCH ×4 (00:09→18:00)
[2021-07-02] MEDS: LORAZEPAM INJ 2 MG/ML VIAL IV PRN ×2 (00:45→05:34)
[2021-07-02] MEDS: PROPOFOL IV EMULSION 10MG/ML 100 ML IV SCH ×6 (00:45→22:57)
[2021-07-02 05:39] LABS: BASOPHILS % 0.2 % (0.0-1.0); EOSINOPHILS # (AUTO) 0.1 (0.0-0.4); EOSINOPHILS % 0.9 % (0.0-6.0); HEMATOCRIT 27.9 % (38.2-49.6); HEMOGLOBIN 9.2 g/dL (14.0-18.0); LYMPHOCYTES # (AUTO) 0.8 (1.0-3.2); LYMPHOCYTES % 5.9 % (18.0-39.1); MEAN CORPUSCULAR HEMOGLOBIN 30.3 pg (28-32); MEAN CORPUSCULAR VOLUME 91.8 fL (81-99); MONOCYTES # (AUTO) 1.2 (0.2-0.8); MONOCYTES % 9.3 % (4.4-11.3); NEUTROPHILS # (AUTO) 10.5 (2.1-6.9); NEUTROPHILS % 80.7 % (38.7-80.0); PLATELET COUNT 347 x10e3/uL (140-360); RED BLOOD COUNT 3.04 x10e6/uL (4.3-5.7); RED CELL DISTRIBUTION WIDTH 14.2 % (11.7-14.4)
[2021-07-02 06:11] LABS: ALBUMIN 2.7 g/dL (3.5-5.0); ALBUMIN/GLOBULIN RATIO 0.6 (0.8-2.0); ANION GAP 20.4 mmol/L (8-16); CALCIUM 8.6 mg/dL (8.4-10.2); CREATININE, SERUM 4.06 mg/dL (0.72-1.25); POTASSIUM 4.4 mmol/L (3.5-5.1)
[2021-07-02] MEDS: HEPARIN 25,000 UNIT 1,500 UNIT in DEXTROSE 5% 250ML 250 ML IV SCH ×3 (07:13→14:21)
[2021-07-02] MEDS: FAMOTIDINE 20 MG/2 ML VIAL IV SCH ×2 (07:26→17:14)
[2021-07-02] MEDS: METOPROLOL TARTRATE 50 MG TAB PO SCH ×2 (07:27→17:14)
[2021-07-02] MEDS: ASCORBIC ACID 500 MG TAB PO SCH ×2 (07:28→17:15)
[2021-07-02] MEDS: ZINC SULFATE 220 MG CAP PO SCH (07:28)
[2021-07-02] MEDS: CALCIUM CARBONATE 500 MG CHEWABLE TABS PO SCH ×3 (07:28→21:03)
[2021-07-02 09:49] LABS: ABG HCO3 27 mmol/L (22-26); ABG PCO2 43 mmHg (35-45); ABG PO2 116 mmHg (80-105); ABG TCO2 28
[2021-07-02] MEDS ORDERED: HEPARIN SOD (PORCINE) 1000 UNIT/ML SDV ONE (10:07)
[2021-07-02] MEDS: INSULIN GLARGINE 100 UNITS/ML VIAL SQ SCH (21:04)
[2021-07-03] VITALS (27 sets, daily range): BP systolic 108–179; BP diastolic 65–107
[2021-07-03] MEDS: LORAZEPAM INJ 2 MG/ML VIAL IV PRN ×2 (01:48→19:40)
[2021-07-03] MEDS: PROPOFOL IV EMULSION 10MG/ML 100 ML IV SCH ×2 (02:50→06:47)
[2021-07-03 04:21] LABS: BASOPHILS % 0.2 % (0.0-1.0); EOSINOPHILS # (AUTO) 0.2 (0.0-0.4); EOSINOPHILS % 1.5 % (0.0-6.0); HEMATOCRIT 25.9 % (38.2-49.6); HEMOGLOBIN 8.6 g/dL (14.0-18.0); LYMPHOCYTES # (AUTO) 0.6 (1.0-3.2); LYMPHOCYTES % 5.8 % (18.0-39.1); MEAN CORPUSCULAR HEMOGLOBIN 30.2 pg (28-32); MEAN CORPUSCULAR HGB CONC 33.2 g/dL (31-35); MEAN CORPUSCULAR VOLUME 90.9 fL (81-99); MONOCYTES # (AUTO) 0.9 (0.2-0.8); MONOCYTES % 8.9 % (4.4-11.3); NEUTROPHILS # (AUTO) 8.3 (2.1-6.9); NEUTROPHILS % 81.4 % (38.7-80.0); PLATELET COUNT 299 x10e3/uL (140-360); RED BLOOD COUNT 2.85 x10e6/uL (4.3-5.7); RED CELL DISTRIBUTION WIDTH 14.1 % (11.7-14.4)
[2021-07-03 04:32] LABS: ALBUMIN 2.6 g/dL (3.5-5.0); ALBUMIN/GLOBULIN RATIO 0.6 (0.8-2.0); ANION GAP 23.6 mmol/L (8-16); CALCIUM 8.9 mg/dL (8.4-10.2); POTASSIUM 4.6 mmol/L (3.5-5.1)
[2021-07-03] MEDS: INSULIN LISPRO 100 UNIT/1 ML 3ML VIAL SQ SCH ×4 (06:45→18:00)
[2021-07-03] MEDS ORDERED: ALBUMIN 25% 12.5GM 0.25 GM/ML BTL IV PRN (08:30)
[2021-07-03] MEDS ORDERED: SODIUM CHLORIDE 0.9% 1000ML 2,000 ML IV PRN (08:30)
[2021-07-03] MEDS ORDERED: SODIUM CHLORIDE 0.9% 250ML 500 ML IV PRN (08:30)
[2021-07-03] MEDS ORDERED: HEPARIN SOD (PORCINE) 1000 UNIT/ML SDV IV PRN (08:30)
[2021-07-03] MEDS: FAMOTIDINE 20 MG/2 ML VIAL IV SCH ×2 (09:11→16:51)
[2021-07-03] MEDS: METOPROLOL TARTRATE 50 MG TAB PO SCH ×2 (09:12→16:51)
[2021-07-03] MEDS: ZINC SULFATE 220 MG CAP PO SCH (09:12)
[2021-07-03] MEDS: ASCORBIC ACID 500 MG TAB PO SCH ×2 (09:12→16:51)
[2021-07-03] MEDS: CALCIUM CARBONATE 500 MG CHEWABLE TABS PO SCH ×3 (09:12→21:41)
[2021-07-03] MEDS: ACETAMINOPHEN 325 MG TAB PO PRN (09:13)
[2021-07-03] MEDS: PROPOFOL IV EMULSION 50 ML IV SCH (11:45)
[2021-07-03 11:54] LABS: ABG PCO2 41 mmHg (35-45); ABG PH 7.35 (7.35-7.45); ABG PO2 138 mmHg (80-105)
[2021-07-03 11:55] LABS: ABG HCO3 23 mmol/L (22-26); ABG TCO2 24
[2021-07-03] MEDS: HEPARIN 25,000 UNIT 1,500 UNIT in DEXTROSE 5% 250ML 250 ML IV SCH ×2 (13:55→23:00)
[2021-07-03] MEDS: DEXMEDETOMIDINE 400MCG/NS100ML 100 ML IV PRN (15:50)
[2021-07-03] MEDS: INSULIN GLARGINE 100 UNITS/ML VIAL SQ SCH (21:42)
[2021-07-04] VITALS (29 sets, daily range): BP systolic 119–186; BP diastolic 73–108
[2021-07-04] MEDS: INSULIN LISPRO 100 UNIT/1 ML 3ML VIAL SQ SCH ×4 (00:12→17:52)
[2021-07-04] MEDS: HYDRALAZINE HCL 20 MG/ML VIAL IV PRN ×2 (01:33→13:42)
[2021-07-04] MEDS ORDERED: HYDRALAZINE HCL 20 MG/ML VIAL ONE (01:41)
[2021-07-04] MEDS: DEXMEDETOMIDINE 400MCG/NS100ML 100 ML IV PRN ×5 (04:21→20:16)
[2021-07-04 06:49] LABS: BASOPHILS % 0.2 % (0.0-1.0); EOSINOPHILS # (AUTO) 0.1 (0.0-0.4); EOSINOPHILS % 1.4 % (0.0-6.0); HEMATOCRIT 27.9 % (38.2-49.6); HEMOGLOBIN 8.9 g/dL (14.0-18.0); LYMPHOCYTES # (AUTO) 0.8 (1.0-3.2); MEAN CORPUSCULAR HEMOGLOBIN 28.3 pg (28-32); MEAN CORPUSCULAR HGB CONC 31.9 g/dL (31-35); MEAN CORPUSCULAR VOLUME 88.6 fL (81-99); MONOCYTES # (AUTO) 0.9 (0.2-0.8); MONOCYTES % 9.6 % (4.4-11.3); NEUTROPHILS # (AUTO) 7.5 (2.1-6.9); NEUTROPHILS % 77.9 % (38.7-80.0); PLATELET COUNT 296 x10e3/uL (140-360); RED BLOOD COUNT 3.15 x10e6/uL (4.3-5.7)
[2021-07-04 07:28] LABS: ALBUMIN/GLOBULIN RATIO 0.4 (0.8-2.0); ANION GAP 22.9 mmol/L (8-16); CALCIUM 8.9 mg/dL (8.4-10.2); CREATININE, SERUM 5.46 mg/dL (0.72-1.25); POTASSIUM 3.9 mmol/L (3.5-5.1)
[2021-07-04] MEDS: CALCIUM CARBONATE 500 MG CHEWABLE TABS PO SCH ×3 (09:06→20:11)
[2021-07-04] MEDS: ZINC SULFATE 220 MG CAP PO SCH (09:06)
[2021-07-04] MEDS: METOPROLOL TARTRATE 50 MG TAB PO SCH ×2 (09:06→17:30)
[2021-07-04] MEDS: FAMOTIDINE 20 MG/2 ML VIAL IV SCH ×2 (09:06→13:30)
[2021-07-04] MEDS: ASCORBIC ACID 500 MG TAB PO SCH ×2 (09:06→17:30)
[2021-07-04] MEDS: HEPARIN 25,000 UNIT 1,500 UNIT in DEXTROSE 5% 250ML 250 ML IV SCH ×2 (09:26→18:38)
[2021-07-04] MEDS: PROPOFOL IV EMULSION 50 ML IV SCH (10:05)
[2021-07-04] MEDS: ACETAMINOPHEN 325 MG TAB PO PRN ×2 (13:42→20:39)
[2021-07-04] MEDS: INSULIN GLARGINE 100 UNITS/ML VIAL SQ SCH (20:21)
[2021-07-05] VITALS (28 sets, daily range): BP systolic 81–191; BP diastolic 0–104
[2021-07-05] MEDS: DEXMEDETOMIDINE 400MCG/NS100ML 100 ML IV PRN ×4 (00:23→14:57)
[2021-07-05] MEDS: INSULIN LISPRO 100 UNIT/1 ML 3ML VIAL SQ SCH ×4 (00:40→17:46)
[2021-07-05] MEDS ORDERED: HEPARIN 25,000 UNIT DRIP IV ONE ×2 (03:12→21:16)
[2021-07-05] MEDS: HEPARIN 25,000 UNIT 1,500 UNIT in DEXTROSE 5% 250ML 250 ML IV SCH ×3 (03:13→22:19)
[2021-07-05] MEDS: HYDRALAZINE HCL 20 MG/ML VIAL IV PRN (04:23)
[2021-07-05] MEDS: LORAZEPAM INJ 2 MG/ML VIAL IV PRN ×2 (05:04→07:35)
[2021-07-05 06:40] LABS: BASOPHILS # (AUTO) 0.1 (0.0-0.1); BASOPHILS % 0.3 % (0.0-1.0); EOSINOPHILS # (AUTO) 0.2 (0.0-0.4); EOSINOPHILS % 1.2 % (0.0-6.0); HEMATOCRIT 28.9 % (38.2-49.6); HEMOGLOBIN 9.2 g/dL (14.0-18.0); LYMPHOCYTES # (AUTO) 0.9 (1.0-3.2); LYMPHOCYTES % 5.5 % (18.0-39.1); MEAN CORPUSCULAR HEMOGLOBIN 28.2 pg (28-32); MEAN CORPUSCULAR HGB CONC 31.8 g/dL (31-35); MEAN CORPUSCULAR VOLUME 88.7 fL (81-99); MONOCYTES # (AUTO) 1.2 (0.2-0.8); NEUTROPHILS # (AUTO) 14.1 (2.1-6.9); NEUTROPHILS % 83.3 % (38.7-80.0); PLATELET COUNT 270 x10e3/uL (140-360); RED BLOOD COUNT 3.26 x10e6/uL (4.3-5.7); RED CELL DISTRIBUTION WIDTH 13.8 % (11.7-14.4)
[2021-07-05 07:25] LABS: ALBUMIN/GLOBULIN RATIO 0.4 (0.8-2.0); ANION GAP 28.2 mmol/L (8-16); CREATININE, SERUM 7.59 mg/dL (0.72-1.25); POTASSIUM 4.2 mmol/L (3.5-5.1)
[2021-07-05] MEDS: FAMOTIDINE 20 MG/2 ML VIAL IV SCH ×2 (08:39→17:02)
[2021-07-05] MEDS: METOPROLOL TARTRATE 50 MG TAB PO SCH ×2 (08:39→17:00)
[2021-07-05] MEDS: ZINC SULFATE 220 MG CAP PO SCH (08:40)
[2021-07-05] MEDS: ASCORBIC ACID 500 MG TAB PO SCH ×2 (08:40→17:02)
[2021-07-05] MEDS: CALCIUM CARBONATE 500 MG CHEWABLE TABS PO SCH ×2 (08:40→14:57)
[2021-07-05 09:08] LABS: ABG HCO3 28 mmol/L (22-26); ABG PCO2 52 mmHg (35-45); ABG PH 7.34 (7.35-7.45); ABG PO2 276 mmHg (80-105); ABG TCO2 29
[2021-07-05] MEDS: PIPERACILLIN/TAZOBACTAM 2.25 GM in SODIUM CHLORIDE 0.9% 50ML 50 ML IV SCH ×2 (11:16→17:02)
[2021-07-05] MEDS: DEXMEDETOMIDINE 100 ML IV PRN (17:41)
[2021-07-05] MEDS: NOREPINEPHRINE 8 MG/D5W 250 ML 250 ML IV SCH (20:45)
[2021-07-06] VITALS (25 sets, daily range): BP systolic 80–173; BP diastolic 54–104
[2021-07-06] MEDS: PIPERACILLIN/TAZOBACTAM 2.25 GM in SODIUM CHLORIDE 0.9% 50ML 50 ML IV SCH (00:32)
[2021-07-06] MEDS ORDERED: INSULIN GLARGINE 100 UNITS/ML VIAL ONE (00:37)
[2021-07-06] MEDS: INSULIN GLARGINE 100 UNITS/ML VIAL SQ SCH ×2 (00:40→21:32)
[2021-07-06] MEDS: INSULIN LISPRO 100 UNIT/1 ML 3ML VIAL SQ SCH ×4 (00:40→17:59)
[2021-07-06] MEDS: DEXMEDETOMIDINE 100 ML IV PRN ×4 (00:59→21:00)
[2021-07-06] MEDS ORDERED: HEPARIN 25,000 UNIT DRIP IV ONE (05:55)
[2021-07-06] MEDS ORDERED: DEXMEDETOMIDINE 400MCG/NS100ML 100 ML IV ONE (05:56)
[2021-07-06 06:37] LABS: BASOPHILS % 0.2 % (0.0-1.0); EOSINOPHILS # (AUTO) 0.3 (0.0-0.4); EOSINOPHILS % 2.3 % (0.0-6.0); HEMATOCRIT 25.1 % (38.2-49.6); LYMPHOCYTES # (AUTO) 1.5 (1.0-3.2); LYMPHOCYTES % 10.6 % (18.0-39.1); MEAN CORPUSCULAR HEMOGLOBIN 28.7 pg (28-32); MEAN CORPUSCULAR HGB CONC 31.9 g/dL (31-35); MONOCYTES # (AUTO) 0.8 (0.2-0.8); MONOCYTES % 5.9 % (4.4-11.3); NEUTROPHILS # (AUTO) 11.3 (2.1-6.9); NEUTROPHILS % 79.1 % (38.7-80.0); PLATELET COUNT 255 x10e3/uL (140-360); RED BLOOD COUNT 2.79 x10e6/uL (4.3-5.7); RED CELL DISTRIBUTION WIDTH 14.1 % (11.7-14.4)
[2021-07-06 07:18] LABS: ALBUMIN 2.3 g/dL (3.5-5.0); ALBUMIN/GLOBULIN RATIO 0.5 (0.8-2.0); ANION GAP 23.2 mmol/L (8-16); CALCIUM 8.8 mg/dL (8.4-10.2); CREATININE, SERUM 5.72 mg/dL (0.72-1.25); POTASSIUM 4.2 mmol/L (3.5-5.1)
[2021-07-06] MEDS: ZINC SULFATE 220 MG CAP PO SCH (08:58)
[2021-07-06] MEDS: FAMOTIDINE 20 MG/2 ML VIAL IV SCH ×2 (08:58→17:06)
[2021-07-06] MEDS: ASCORBIC ACID 500 MG TAB PO SCH ×2 (08:59→17:06)
[2021-07-06] MEDS: METOPROLOL TARTRATE 50 MG TAB PO SCH ×2 (09:00→17:00)
[2021-07-06] MEDS: HEPARIN 25,000 UNIT 1,500 UNIT in DEXTROSE 5% 250ML 250 ML IV SCH (17:18)
[2021-07-06] MEDS: NOREPINEPHRINE 8 MG/D5W 250 ML 250 ML IV SCH (20:45)
[2021-07-07] VITALS (25 sets, daily range): BP systolic 114–182; BP diastolic 51–95
[2021-07-07] MEDS: INSULIN LISPRO 100 UNIT/1 ML 3ML VIAL SQ SCH ×5 (00:17→23:35)
[2021-07-07] MEDS ORDERED: HEPARIN 25,000 UNIT DRIP IV ONE (02:54)
[2021-07-07] MEDS: HEPARIN 25,000 UNIT 1,500 UNIT in DEXTROSE 5% 250ML 250 ML IV SCH ×3 (02:56→20:27)
[2021-07-07 06:20] LABS: BASOPHILS % 0.3 % (0.0-1.0); EOSINOPHILS # (AUTO) 0.4 (0.0-0.4); EOSINOPHILS % 3.8 % (0.0-6.0); HEMATOCRIT 25.5 % (38.2-49.6); LYMPHOCYTES # (AUTO) 1.5 (1.0-3.2); LYMPHOCYTES % 14.4 % (18.0-39.1); MEAN CORPUSCULAR HEMOGLOBIN 28.7 pg (28-32); MEAN CORPUSCULAR HGB CONC 31.4 g/dL (31-35); MEAN CORPUSCULAR VOLUME 91.4 fL (81-99); MONOCYTES # (AUTO) 0.8 (0.2-0.8); MONOCYTES % 7.7 % (4.4-11.3); NEUTROPHILS # (AUTO) 7.6 (2.1-6.9); NEUTROPHILS % 71.6 % (38.7-80.0); PLATELET COUNT 227 x10e3/uL (140-360); RED BLOOD COUNT 2.79 x10e6/uL (4.3-5.7); RED CELL DISTRIBUTION WIDTH 13.7 % (11.7-14.4)
[2021-07-07 06:51] LABS: ALBUMIN 2.2 g/dL (3.5-5.0); ALBUMIN/GLOBULIN RATIO 0.5 (0.8-2.0); ANION GAP 20.9 mmol/L (8-16); CALCIUM 8.8 mg/dL (8.4-10.2); CREATININE, SERUM 5.29 mg/dL (0.72-1.25); POTASSIUM 3.9 mmol/L (3.5-5.1)
[2021-07-07] MEDS: ASCORBIC ACID 500 MG TAB PO SCH ×2 (08:01→16:39)
[2021-07-07] MEDS: METOPROLOL TARTRATE 50 MG TAB PO SCH ×2 (08:01→16:39)
[2021-07-07] MEDS: FAMOTIDINE 20 MG/2 ML VIAL IV SCH ×2 (08:01→16:39)
[2021-07-07] MEDS: ZINC SULFATE 220 MG CAP PO SCH (08:01)
[2021-07-07 09:10] LABS: ABG HCO3 28 mmol/L (22-26); ABG PCO2 41 mmHg (35-45); ABG PH 7.44 (7.35-7.45); ABG PO2 88 mmHg (80-105); ABG TCO2 29
[2021-07-07] MEDS: DEXMEDETOMIDINE 100 ML IV PRN (13:26)
[2021-07-07] MEDS: NOREPINEPHRINE 8 MG/D5W 250 ML 250 ML IV SCH (20:27)
[2021-07-07] MEDS: INSULIN GLARGINE 100 UNITS/ML VIAL SQ SCH (21:50)
[2021-07-08] VITALS (26 sets, daily range): BP systolic 99–183; BP diastolic 40–92
[2021-07-08 06:01] LABS: BASOPHILS % 0.3 % (0.0-1.0); EOSINOPHILS # (AUTO) 0.3 (0.0-0.4); EOSINOPHILS % 1.9 % (0.0-6.0); HEMATOCRIT 24.2 % (38.2-49.6); HEMOGLOBIN 7.7 g/dL (14.0-18.0); LYMPHOCYTES # (AUTO) 0.7 (1.0-3.2); LYMPHOCYTES % 5.1 % (18.0-39.1); MEAN CORPUSCULAR HEMOGLOBIN 28.6 pg (28-32); MEAN CORPUSCULAR HGB CONC 31.8 g/dL (31-35); MONOCYTES # (AUTO) 0.7 (0.2-0.8); MONOCYTES % 4.7 % (4.4-11.3); NEUTROPHILS # (AUTO) 12.1 (2.1-6.9); NEUTROPHILS % 86.4 % (38.7-80.0); PLATELET COUNT 224 x10e3/uL (140-360); RED BLOOD COUNT 2.69 x10e6/uL (4.3-5.7); RED CELL DISTRIBUTION WIDTH 13.5 % (11.7-14.4)
[2021-07-08 06:29] LABS: ALBUMIN 2.1 g/dL (3.5-5.0); ALBUMIN/GLOBULIN RATIO 0.5 (0.8-2.0); ANION GAP 23.5 mmol/L (8-16); CALCIUM 8.7 mg/dL (8.4-10.2); CREATININE, SERUM 7.43 mg/dL (0.72-1.25); POTASSIUM 4.5 mmol/L (3.5-5.1)
[2021-07-08] MEDS: INSULIN LISPRO 100 UNIT/1 ML 3ML VIAL SQ SCH ×3 (06:44→18:00)
[2021-07-08] MEDS: HEPARIN 25,000 UNIT 1,500 UNIT in DEXTROSE 5% 250ML 250 ML IV SCH ×2 (08:00→22:25)
[2021-07-08] MEDS: DEXMEDETOMIDINE 100 ML IV PRN ×3 (08:00→22:55)
[2021-07-08] MEDS ORDERED: MEROPENEM 500 MG in SODIUM CHLORIDE 0.9% 50ML 50 ML IV SCH (08:30)
[2021-07-08] MEDS ORDERED: Vancomycin IV 1 GM in SODIUM CHLORIDE 0.9% 250ML 250 ML IV ONE (08:30)
[2021-07-08] MEDS: ZINC SULFATE 220 MG CAP PO SCH (08:34)
[2021-07-08] MEDS: ASCORBIC ACID 500 MG TAB PO SCH ×2 (08:34→16:26)
[2021-07-08] MEDS: FAMOTIDINE 20 MG/2 ML VIAL IV SCH ×2 (08:34→16:25)
[2021-07-08] MEDS: METOPROLOL TARTRATE 50 MG TAB PO SCH ×2 (09:00→17:00)
[2021-07-08 09:33] LABS: ABG HCO3 24 mmol/L (22-26); ABG PCO2 35 mmHg (35-45); ABG PH 7.44 (7.35-7.45); ABG PO2 113 mmHg (80-105); ABG TCO2 25
[2021-07-08] MEDS: CEFEPIME 2 GM in SODIUM CHLORIDE 0.9% 100 ML IV SCH (13:22)
[2021-07-08] MEDS: ACETAMINOPHEN 325 MG TAB PO PRN ×2 (16:30→17:16)
[2021-07-08] MEDS: NOREPINEPHRINE 8 MG/D5W 250 ML 250 ML IV SCH (20:45)
[2021-07-08] MEDS: INSULIN GLARGINE 100 UNITS/ML VIAL SQ SCH (21:21)
[2021-07-08] MEDS ORDERED: HEPARIN 25,000 UNIT DRIP IV ONE (22:24)
[2021-07-09] VITALS (27 sets, daily range): BP systolic 109–222; BP diastolic 46–108
[2021-07-09] MEDS: INSULIN LISPRO 100 UNIT/1 ML 3ML VIAL SQ SCH ×4 (00:19→18:00)
[2021-07-09] MEDS: DEXMEDETOMIDINE 100 ML IV PRN (04:42)
[2021-07-09 06:45] LABS: ALBUMIN/GLOBULIN RATIO 0.5 (0.8-2.0); ANION GAP 19.1 mmol/L (8-16); CALCIUM 8.3 mg/dL (8.4-10.2); CREATININE, SERUM 5.1 mg/dL (0.72-1.25); POTASSIUM 4.1 mmol/L (3.5-5.1)
[2021-07-09 06:47] LABS: BASOPHILS % 0.3 % (0.0-1.0); EOSINOPHILS # (AUTO) 0.2 (0.0-0.4); EOSINOPHILS % 2.7 % (0.0-6.0); LYMPHOCYTES # (AUTO) 0.8 (1.0-3.2); LYMPHOCYTES % 9.1 % (18.0-39.1); MEAN CORPUSCULAR HEMOGLOBIN 28.8 pg (28-32); MEAN CORPUSCULAR HGB CONC 32.2 g/dL (31-35); MEAN CORPUSCULAR VOLUME 89.3 fL (81-99); MONOCYTES # (AUTO) 0.6 (0.2-0.8); MONOCYTES % 7.3 % (4.4-11.3); NEUTROPHILS # (AUTO) 6.9 (2.1-6.9); NEUTROPHILS % 79.1 % (38.7-80.0); RED BLOOD COUNT 2.33 x10e6/uL (4.3-5.7); RED CELL DISTRIBUTION WIDTH 13.7 % (11.7-14.4)
[2021-07-09 06:56] LABS: HEMOGLOBIN 6.7 g/dL (14.0-18.0)
[2021-07-09 06:58] LABS: HEMATOCRIT 20.8 % (38.2-49.6)
[2021-07-09 07:00] LABS: PLATELET COUNT 140 x10e3/uL (140-360)
[2021-07-09 08:25] LABS: INR 1.17; PROTHROMBIN TIME 15.1 seconds (11.9-14.5)
[2021-07-09] MEDS: ASCORBIC ACID 500 MG TAB PO SCH ×2 (08:35→18:02)
[2021-07-09] MEDS: METOPROLOL TARTRATE 50 MG TAB PO SCH ×2 (08:35→18:02)
[2021-07-09] MEDS: ZINC SULFATE 220 MG CAP PO SCH (08:35)
[2021-07-09] MEDS: FAMOTIDINE 20 MG/2 ML VIAL IV SCH ×2 (08:35→18:01)
[2021-07-09] MEDS ORDERED: SODIUM CHLORIDE 0.9% 250ML 250 ML ONE (11:09)
[2021-07-09] MEDS ORDERED: LIDOCAINE HCL 1% LOCAL INJ 20 ML VIAL ONE (11:09)
[2021-07-09] MEDS ORDERED: FENTANYL CITRATE/PF 100MCG/2 ML INJ ONE (11:24)
[2021-07-09] MEDS ORDERED: MIDAZOLAM HCL 2 MG/2 ML VIAL ONE (11:24)
[2021-07-09] MEDS ORDERED: SODIUM CHLORIDE 0.9% 250ML 250 ML IV ONE (11:30)
[2021-07-09] MEDS ORDERED: HEPARIN SOD (PORCINE) 1000 UNIT/ML SDV ONE (11:35)
[2021-07-09] MEDS ORDERED: ACETAMINOPHEN 325 MG TAB PO ONE (12:00)
[2021-07-09] MEDS: CEFEPIME 2 GM in SODIUM CHLORIDE 0.9% 100 ML IV SCH (14:11)
[2021-07-09] MEDS: HYDRALAZINE HCL 20 MG/ML VIAL IV PRN ×2 (14:13→18:31)
[2021-07-09] MEDS ORDERED: SODIUM CHLORIDE 0.45% 500 ML IV ONE (17:30)
[2021-07-09 17:33] LABS: BASOPHILS % 0.2 % (0.0-1.0); EOSINOPHILS % 0.5 % (0.0-6.0); HEMATOCRIT 22.3 % (38.2-49.6); LYMPHOCYTES # (AUTO) 0.5 (1.0-3.2); LYMPHOCYTES % 6.1 % (18.0-39.1); MEAN CORPUSCULAR HEMOGLOBIN 28.8 pg (28-32); MEAN CORPUSCULAR HGB CONC 31.4 g/dL (31-35); MEAN CORPUSCULAR VOLUME 91.8 fL (81-99); MONOCYTES # (AUTO) 0.1 (0.2-0.8); MONOCYTES % 1.3 % (4.4-11.3); NEUTROPHILS # (AUTO) 7.5 (2.1-6.9); NEUTROPHILS % 89.9 % (38.7-80.0); PLATELET COUNT 166 x10e3/uL (140-360); RED BLOOD COUNT 2.43 x10e6/uL (4.3-5.7); RED CELL DISTRIBUTION WIDTH 13.9 % (11.7-14.4)
[2021-07-09] MEDS ORDERED: ACETAMINOPHEN 1000 MG/100 ML IV ONE (17:45)
[2021-07-09] MEDS ORDERED: SODIUM CHLORIDE 0.45% 1,000 ML ONE (18:59)
[2021-07-09] MEDS ORDERED: IBUPROFEN 800MG/ 200ML 200 ML IV ONE (20:00)
[2021-07-09] MEDS ORDERED: HEPARIN IV SCH (20:45)
[2021-07-09] MEDS ORDERED: DEXTROSE 5% IV SCH (20:45)
[2021-07-09] MEDS: INSULIN GLARGINE 100 UNITS/ML VIAL SQ SCH (21:11)
[2021-07-09] MEDS: LINEZOLID 600 MG/D5W 300ML 300 ML IV SCH (23:15)
[2021-07-10] VITALS (24 sets, daily range): BP systolic 93–142; BP diastolic 60–83
[2021-07-10] MEDS: INSULIN LISPRO 100 UNIT/1 ML 3ML VIAL SQ SCH ×4 (00:14→18:00)
[2021-07-10] MEDS: DEXMEDETOMIDINE 100 ML IV PRN (04:42)
[2021-07-10 06:30] LABS: BASOPHILS % 0.2 % (0.0-1.0); EOSINOPHILS # (AUTO) 0.2 (0.0-0.4); EOSINOPHILS % 2.3 % (0.0-6.0); LYMPHOCYTES # (AUTO) 0.5 (1.0-3.2); LYMPHOCYTES % 7.4 % (18.0-39.1); MEAN CORPUSCULAR HEMOGLOBIN 28.6 pg (28-32); MEAN CORPUSCULAR HGB CONC 31.5 g/dL (31-35); MEAN CORPUSCULAR VOLUME 90.7 fL (81-99); MONOCYTES # (AUTO) 0.5 (0.2-0.8); MONOCYTES % 7.8 % (4.4-11.3); NEUTROPHILS # (AUTO) 5.4 (2.1-6.9); NEUTROPHILS % 81.1 % (38.7-80.0); PLATELET COUNT 111 x10e3/uL (140-360); RED BLOOD COUNT 1.82 x10e6/uL (4.3-5.7); RED CELL DISTRIBUTION WIDTH 14.3 % (11.7-14.4)
[2021-07-10 06:36] LABS: HEMATOCRIT 16.5 % (38.2-49.6); HEMOGLOBIN 5.2 g/dL (14.0-18.0)
[2021-07-10 06:48] LABS: ALBUMIN 1.8 g/dL (3.5-5.0); ALBUMIN/GLOBULIN RATIO 0.4 (0.8-2.0); ANION GAP 20.1 mmol/L (8-16); CALCIUM 8.2 mg/dL (8.4-10.2); CREATININE, SERUM 7.31 mg/dL (0.72-1.25); POTASSIUM 4.1 mmol/L (3.5-5.1)
[2021-07-10] MEDS ORDERED: SODIUM CHLORIDE 0.9% 250ML 250 ML ONE (08:14)
[2021-07-10] MEDS: ASCORBIC ACID 500 MG TAB PO SCH ×2 (08:22→16:54)
[2021-07-10] MEDS: FAMOTIDINE 20 MG/2 ML VIAL IV SCH ×2 (08:22→16:54)
[2021-07-10] MEDS: ZINC SULFATE 220 MG CAP PO SCH (08:22)
[2021-07-10] MEDS: METOPROLOL TARTRATE 50 MG TAB PO SCH ×2 (09:00→17:00)
[2021-07-10] MEDS ORDERED: FONDAPARINUX SODIUM 7.5 MG/0.6 ML SYR SQ SCH (09:00)
[2021-07-10] MEDS: LINEZOLID 600 MG/D5W 300ML 300 ML IV SCH ×2 (09:21→22:08)
[2021-07-10] MEDS ORDERED: ACETAMINOPHEN 325 MG TAB PO STA (09:30)
[2021-07-10] MEDS ORDERED: SODIUM CHLORIDE 0.9% 250ML 250 ML IV ONE (09:30)
[2021-07-10] MEDS ORDERED: HEPARIN SOD (PORCINE) 1000 UNIT/ML SDV IV PRN (11:00)
[2021-07-10 13:27] LABS: FERRITIN 3551.21 ng/mL (21.81-274.66)
[2021-07-10] MEDS ORDERED: EPOETIN ALFA-EPBX 10,000 UNIT/ML VIAL SC SCH (14:00)
[2021-07-10] MEDS: BIVALRIUDIN 250 MG in SODIUM CHLORIDE 0.9% 250ML 250 ML IV SCH (15:15)
[2021-07-10] MEDS: CEFEPIME 2 GM in SODIUM CHLORIDE 0.9% 100 ML IV SCH (16:53)
[2021-07-10] MEDS ORDERED: PROMETHAZINE 25MG/ NS 50ML (IV) IV ONE (21:00)
[2021-07-10] MEDS: INSULIN GLARGINE 100 UNITS/ML VIAL SQ SCH (21:29)
[2021-07-11] VITALS (24 sets, daily range): BP systolic 94–161; BP diastolic 55–86
[2021-07-11] MEDS: INSULIN LISPRO 100 UNIT/1 ML 3ML VIAL SQ SCH ×4 (00:12→17:59)
[2021-07-11 06:23] LABS: HEMATOCRIT 21.9 % (38.2-49.6); HEMOGLOBIN 7.2 g/dL (14.0-18.0); MEAN CORPUSCULAR HEMOGLOBIN 29.1 pg (28-32); MEAN CORPUSCULAR HGB CONC 32.9 g/dL (31-35); MEAN CORPUSCULAR VOLUME 88.7 fL (81-99); PLATELET COUNT 151 x10e3/uL (140-360); RED BLOOD COUNT 2.47 x10e6/uL (4.3-5.7); RED CELL DISTRIBUTION WIDTH 15.2 % (11.7-14.4)
[2021-07-11] MEDS: DEXMEDETOMIDINE 100 ML IV PRN ×2 (06:35→23:48)
[2021-07-11 07:07] LABS: ALBUMIN 1.9 g/dL (3.5-5.0); ALBUMIN/GLOBULIN RATIO 0.5 (0.8-2.0); ANION GAP 19.6 mmol/L (8-16); CALCIUM 8.2 mg/dL (8.4-10.2); CREATININE, SERUM 5.35 mg/dL (0.72-1.25); POTASSIUM 4.6 mmol/L (3.5-5.1)
[2021-07-11] MEDS: FAMOTIDINE 20 MG/2 ML VIAL IV SCH ×2 (09:03→17:58)
[2021-07-11] MEDS: METOPROLOL TARTRATE 50 MG TAB PO SCH ×2 (09:04→17:58)
[2021-07-11] MEDS: LINEZOLID 600 MG/D5W 300ML 300 ML IV SCH (09:04)
[2021-07-11] MEDS: ASCORBIC ACID 500 MG TAB PO SCH ×2 (09:04→17:58)
[2021-07-11] MEDS: ZINC SULFATE 220 MG CAP PO SCH (09:04)
[2021-07-11 12:39] LABS: BAND NEUTROPHILS % (MANUAL) 3 %; EOSINOPHILS % (MANUAL) 2 % (0-7); LYMPHOCYTES % (MANUAL) 15 % (19-48); MONOCYTES % (MANUAL) 6 % (3.4-9.0); NEUTROPHILS % (MANUAL) 74 % (40-74)
[2021-07-11 12:40] LABS: PLATELET ESTIMATE ADEQUATE; PLATELET MORPHOLOGY COMMENT FEW LARGE
[2021-07-11 12:41] LABS: RBC MORPHOLOGY COMMENT NORMAL
[2021-07-11] MEDS: BIVALRIUDIN 250 MG in SODIUM CHLORIDE 0.9% 250ML 250 ML IV SCH (13:32)
[2021-07-11] MEDS: FOLIC ACID 1 MG TAB NG SCH (13:32)
[2021-07-11] MEDS ORDERED: EPOETIN ALFA-EPBX 10,000 UNIT/ML VIAL SC SCH (15:00)
[2021-07-11] MEDS: INSULIN GLARGINE 100 UNITS/ML VIAL SQ SCH (20:57)
[2021-07-12] VITALS (27 sets, daily range): BP systolic 101–161; BP diastolic 47–102
[2021-07-12 05:59] LABS: BASOPHILS % 0.4 % (0.0-1.0); EOSINOPHILS # (AUTO) 0.3 (0.0-0.4); EOSINOPHILS % 4.9 % (0.0-6.0); HEMATOCRIT 21.1 % (38.2-49.6); LYMPHOCYTES # (AUTO) 1.1 (1.0-3.2); LYMPHOCYTES % 20.7 % (18.0-39.1); MEAN CORPUSCULAR HEMOGLOBIN 28.5 pg (28-32); MEAN CORPUSCULAR HGB CONC 31.8 g/dL (31-35); MEAN CORPUSCULAR VOLUME 89.8 fL (81-99); MONOCYTES # (AUTO) 0.6 (0.2-0.8); MONOCYTES % 12.3 % (4.4-11.3); NEUTROPHILS # (AUTO) 3.1 (2.1-6.9); NEUTROPHILS % 59.7 % (38.7-80.0); PLATELET COUNT 165 x10e3/uL (140-360); RED BLOOD COUNT 2.35 x10e6/uL (4.3-5.7); RED CELL DISTRIBUTION WIDTH 14.6 % (11.7-14.4)
[2021-07-12] MEDS: INSULIN LISPRO 100 UNIT/1 ML 3ML VIAL SQ SCH ×4 (06:00→18:00)
[2021-07-12 06:06] LABS: HEMOGLOBIN 6.7 g/dL (14.0-18.0)
[2021-07-12 06:29] LABS: ALBUMIN 1.9 g/dL (3.5-5.0); ALBUMIN/GLOBULIN RATIO 0.5 (0.8-2.0); ANION GAP 21.3 mmol/L (8-16); CALCIUM 7.8 mg/dL (8.4-10.2); CREATININE, SERUM 6.9 mg/dL (0.72-1.25); POTASSIUM 5.3 mmol/L (3.5-5.1)
[2021-07-12 07:07] LABS: CHOL/HDL RATIO 19.4 (3.9-4.7); CHOLESTEROL 155 MD/DL (0-199); HDL CHOLESTEROL 8 MG/DL (40-60); MAGNESIUM 2.3 MG/DL (1.3-2.1); TRIGLYCERIDES 489 MG/DL (0-149)
[2021-07-12] MEDS ORDERED: SODIUM CHLORIDE 0.9% 250ML 250 ML IV ONE (07:15)
[2021-07-12] MEDS: FOLIC ACID 1 MG TAB NG SCH (09:11)
[2021-07-12] MEDS: ZINC SULFATE 220 MG CAP PO SCH (09:11)
[2021-07-12] MEDS: ASCORBIC ACID 500 MG TAB PO SCH ×2 (09:11→18:03)
[2021-07-12] MEDS: FAMOTIDINE 20 MG/2 ML VIAL IV SCH ×2 (09:12→18:03)
[2021-07-12] MEDS: METOPROLOL TARTRATE 50 MG TAB PO SCH ×2 (09:14→22:06)
[2021-07-12] MEDS: BIVALRIUDIN 250 MG in SODIUM CHLORIDE 0.9% 250ML 250 ML IV SCH (12:00)
[2021-07-12] MEDS ORDERED: ACETAMINOPHEN 1000 MG/100 ML IV STA (16:27)
[2021-07-12] MEDS: HYDRALAZINE HCL 20 MG/ML VIAL IV PRN (16:40)
[2021-07-12] MEDS: ONDANSETRON HCL INJ 2MG/ML 2ML 2 MG/ML VIAL IV PRN (16:45)
[2021-07-12 17:23] LABS: HEMATOCRIT 26.7 % (38.2-49.6); HEMOGLOBIN 8.7 g/dL (14.0-18.0)
[2021-07-12 17:38] LABS: BASOPHILS % 0.3 % (0.0-1.0); EOSINOPHILS # (AUTO) 0.1 (0.0-0.4); EOSINOPHILS % 1.2 % (0.0-6.0); HEMATOCRIT 26.9 % (38.2-49.6); HEMOGLOBIN 8.7 g/dL (14.0-18.0); LYMPHOCYTES # (AUTO) 0.7 (1.0-3.2); LYMPHOCYTES % 6.9 % (18.0-39.1); MEAN CORPUSCULAR HEMOGLOBIN 28.8 pg (28-32); MEAN CORPUSCULAR HGB CONC 32.3 g/dL (31-35); MEAN CORPUSCULAR VOLUME 89.1 fL (81-99); MONOCYTES # (AUTO) 0.3 (0.2-0.8); MONOCYTES % 2.6 % (4.4-11.3); NEUTROPHILS # (AUTO) 9.1 (2.1-6.9); NEUTROPHILS % 87.4 % (38.7-80.0); PLATELET COUNT 200 x10e3/uL (140-360); RED BLOOD COUNT 3.02 x10e6/uL (4.3-5.7); RED CELL DISTRIBUTION WIDTH 14.5 % (11.7-14.4)
[2021-07-12 17:48] LABS: ALBUMIN 2.3 g/dL (3.5-5.0); ALBUMIN/GLOBULIN RATIO 0.5 (0.8-2.0); ANION GAP 22.6 mmol/L (8-16); CALCIUM 8.3 mg/dL (8.4-10.2); CREATININE, SERUM 4.63 mg/dL (0.72-1.25); POTASSIUM 4.6 mmol/L (3.5-5.1)
[2021-07-12 17:51] LABS: ABG HCO3 24 mmol/L (22-26); ABG PCO2 31 mmHg (35-45); ABG PO2 148 mmHg (80-105); ABG TCO2 25
[2021-07-12 17:58] LABS: MAGNESIUM 1.6 MG/DL (1.3-2.1)
[2021-07-12] MEDS: INSULIN GLARGINE 100 UNITS/ML VIAL SQ SCH (22:05)
[2021-07-13] VITALS (24 sets, daily range): BP systolic 131–187; BP diastolic 81–109
[2021-07-13] MEDS: BIVALRIUDIN 250 MG in SODIUM CHLORIDE 0.9% 250ML 250 ML IV SCH (02:08)
[2021-07-13] MEDS: INSULIN LISPRO 100 UNIT/1 ML 3ML VIAL SQ SCH ×5 (05:48→23:44)
[2021-07-13 07:00] LABS: BASOPHILS % 0.5 % (0.0-1.0); EOSINOPHILS # (AUTO) 0.2 (0.0-0.4); EOSINOPHILS % 2.5 % (0.0-6.0); HEMATOCRIT 24.3 % (38.2-49.6); HEMOGLOBIN 7.7 g/dL (14.0-18.0); LYMPHOCYTES # (AUTO) 1.2 (1.0-3.2); LYMPHOCYTES % 14.2 % (18.0-39.1); MEAN CORPUSCULAR HEMOGLOBIN 28.6 pg (28-32); MEAN CORPUSCULAR HGB CONC 31.7 g/dL (31-35); MEAN CORPUSCULAR VOLUME 90.3 fL (81-99); MONOCYTES # (AUTO) 0.9 (0.2-0.8); NEUTROPHILS # (AUTO) 5.7 (2.1-6.9); NEUTROPHILS % 70.3 % (38.7-80.0); PLATELET COUNT 227 x10e3/uL (140-360); RED BLOOD COUNT 2.69 x10e6/uL (4.3-5.7); RED CELL DISTRIBUTION WIDTH 14.7 % (11.7-14.4)
[2021-07-13 07:32] LABS: ALBUMIN 2.1 g/dL (3.5-5.0); ALBUMIN/GLOBULIN RATIO 0.5 (0.8-2.0); ANION GAP 19.7 mmol/L (8-16); CALCIUM 8.2 mg/dL (8.4-10.2); CREATININE, SERUM 5.83 mg/dL (0.72-1.25); POTASSIUM 4.7 mmol/L (3.5-5.1)
[2021-07-13] MEDS: FAMOTIDINE 20 MG/2 ML VIAL IV SCH ×2 (08:24→16:34)
[2021-07-13] MEDS: METOPROLOL TARTRATE 50 MG TAB PO SCH ×2 (08:25→21:07)
[2021-07-13] MEDS: ZINC SULFATE 220 MG CAP PO SCH (08:26)
[2021-07-13] MEDS: ASCORBIC ACID 500 MG TAB PO SCH ×2 (08:26→16:34)
[2021-07-13] MEDS: FOLIC ACID 1 MG TAB NG SCH (08:26)
[2021-07-13 14:32] LABS: HEMATOCRIT 24.5 % (38.2-49.6); HEMOGLOBIN 7.8 g/dL (14.0-18.0)
[2021-07-13] MEDS: ONDANSETRON HCL INJ 2MG/ML 2ML 2 MG/ML VIAL IV PRN ×2 (17:30→22:57)
[2021-07-13] MEDS: INSULIN GLARGINE 100 UNITS/ML VIAL SQ SCH (21:00)
[2021-07-13] MEDS: HYDRALAZINE HCL 20 MG/ML VIAL IV PRN (23:21)
[2021-07-13 23:46] LABS: HEMATOCRIT 24.8 % (38.2-49.6); HEMOGLOBIN 7.8 g/dL (14.0-18.0)
[2021-07-14] VITALS (17 sets, daily range): BP systolic 126–176; BP diastolic 73–111
[2021-07-14] MEDS: INSULIN LISPRO 100 UNIT/1 ML 3ML VIAL SQ SCH ×4 (05:45→21:17)
[2021-07-14 06:55] LABS: BASOPHILS % 0.6 % (0.0-1.0); EOSINOPHILS # (AUTO) 0.2 (0.0-0.4); HEMATOCRIT 23.7 % (38.2-49.6); LYMPHOCYTES # (AUTO) 0.9 (1.0-3.2); MEAN CORPUSCULAR HEMOGLOBIN 31.4 pg (28-32); MEAN CORPUSCULAR HGB CONC 33.8 g/dL (31-35); MEAN CORPUSCULAR VOLUME 92.9 fL (81-99); MONOCYTES # (AUTO) 0.7 (0.2-0.8); MONOCYTES % 9.1 % (4.4-11.3); NEUTROPHILS # (AUTO) 5.2 (2.1-6.9); NEUTROPHILS % 72.1 % (38.7-80.0); PLATELET COUNT 213 x10e3/uL (140-360); RED BLOOD COUNT 2.55 x10e6/uL (4.3-5.7); RED CELL DISTRIBUTION WIDTH 14.8 % (11.7-14.4)
[2021-07-14] MEDS: HYDRALAZINE HCL 20 MG/ML VIAL IV PRN (07:26)
[2021-07-14 07:38] LABS: ALBUMIN 2.2 g/dL (3.5-5.0); ALBUMIN/GLOBULIN RATIO 0.5 (0.8-2.0); ANION GAP 19.2 mmol/L (8-16); CALCIUM 8.3 mg/dL (8.4-10.2); CREATININE, SERUM 4.96 mg/dL (0.72-1.25); POTASSIUM 4.2 mmol/L (3.5-5.1)
[2021-07-14] MEDS: FOLIC ACID 1 MG TAB NG SCH (08:03)
[2021-07-14] MEDS: FAMOTIDINE 20 MG/2 ML VIAL IV SCH ×2 (08:03→16:05)
[2021-07-14] MEDS: ZINC SULFATE 220 MG CAP PO SCH (08:06)
[2021-07-14] MEDS: METOPROLOL TARTRATE 50 MG TAB PO SCH ×2 (08:06→21:18)
[2021-07-14] MEDS: ASCORBIC ACID 500 MG TAB PO SCH ×2 (08:06→16:05)
[2021-07-14] MEDS: BIVALRIUDIN 250 MG in SODIUM CHLORIDE 0.9% 250ML 250 ML IV SCH (12:23)
[2021-07-14] MEDS: INSULIN GLARGINE 100 UNITS/ML VIAL SQ SCH (21:17)
[2021-07-14 22:06] LABS: INR 3.15; PROTHROMBIN TIME 32.8 seconds (11.9-14.5)
[2021-07-15] VITALS: BP 144/86
[2021-07-15] MEDS: ONDANSETRON HCL INJ 2MG/ML 2ML 2 MG/ML VIAL IV PRN (03:48)
[2021-07-15] MEDS: INSULIN LISPRO 100 UNIT/1 ML 3ML VIAL SQ SCH ×3 (05:51→17:27)
[2021-07-15 06:52] LABS: BASOPHILS % 0.3 % (0.0-1.0); EOSINOPHILS # (AUTO) 0.2 (0.0-0.4); EOSINOPHILS % 1.5 % (0.0-6.0); HEMATOCRIT 23.1 % (38.2-49.6); LYMPHOCYTES # (AUTO) 0.7 (1.0-3.2); MEAN CORPUSCULAR HEMOGLOBIN 31.9 pg (28-32); MEAN CORPUSCULAR HGB CONC 34.6 g/dL (31-35); MONOCYTES # (AUTO) 0.8 (0.2-0.8); MONOCYTES % 7.9 % (4.4-11.3); NEUTROPHILS # (AUTO) 8.3 (2.1-6.9); NEUTROPHILS % 81.9 % (38.7-80.0); PLATELET COUNT 251 x10e3/uL (140-360); RED BLOOD COUNT 2.51 x10e6/uL (4.3-5.7); RED CELL DISTRIBUTION WIDTH 14.3 % (11.7-14.4)
[2021-07-15 07:17] LABS: ALBUMIN 2.2 g/dL (3.5-5.0); ALBUMIN/GLOBULIN RATIO 0.5 (0.8-2.0); ANION GAP 20.8 mmol/L (8-16); CALCIUM 8.2 mg/dL (8.4-10.2); CREATININE, SERUM 6.93 mg/dL (0.72-1.25); PHOSPHORUS 6.4 MG/DL (2.3-4.7); POTASSIUM 4.8 mmol/L (3.5-5.1)
[2021-07-15 08:00] VITALS: BP 175/95
[2021-07-15] MEDS: FAMOTIDINE 20 MG/2 ML VIAL IV SCH ×2 (08:57→17:27)
[2021-07-15] MEDS: SUCRALFATE 1 GM TAB PO SCH ×4 (08:57→21:03)
[2021-07-15] MEDS: FOLIC ACID 1 MG TAB NG SCH (08:58)
[2021-07-15] MEDS: IRON SUCROSE 100 MG in SODIUM CHLORIDE 0.9% 100 ML 100 ML IV SCH (08:58)
[2021-07-15] MEDS: ZINC SULFATE 220 MG CAP PO SCH (08:59)
[2021-07-15] MEDS: ASCORBIC ACID 500 MG TAB PO SCH ×2 (08:59→17:27)
[2021-07-15] MEDS: AMLODIPINE BESYLATE 5 MG TAB PO SCH (10:45)
[2021-07-15] MEDS: METOPROLOL TARTRATE 50 MG TAB PO SCH ×2 (10:45→21:03)
[2021-07-15] MEDS: HYDRALAZINE HCL 20 MG/ML VIAL IV PRN (10:51)
[2021-07-15 12:00] VITALS: BP 121/63
[2021-07-15] MEDS: CEFEPIME 1 GM in SODIUM CHLORIDE 0.9% 50ML 50 ML IV SCH (12:02)
[2021-07-15] MEDS: BIVALRIUDIN 250 MG in SODIUM CHLORIDE 0.9% 250ML 250 ML IV SCH (14:00)
[2021-07-15 16:00] VITALS: BP 149/72
[2021-07-15] MEDS: INSULIN GLARGINE 100 UNITS/ML VIAL SQ SCH (21:17)
[2021-07-16 00:57] VITALS: BP 166/91
[2021-07-16 03:42] VITALS: BP 153/86
[2021-07-16] MEDS: Pantoprazole IV 40 MG in SODIUM CHLORIDE 0.9% 50ML 50 ML IV SCH ×5 (03:49→23:41)
[2021-07-16 04:00] VITALS: BP 157/85
[2021-07-16] MEDS: INSULIN LISPRO 100 UNIT/1 ML 3ML VIAL SQ SCH ×5 (07:08→21:00)
[2021-07-16 08:24] LABS: BASOPHILS % 0.5 % (0.0-1.0); EOSINOPHILS # (AUTO) 0.2 (0.0-0.4); EOSINOPHILS % 3.6 % (0.0-6.0); HEMOGLOBIN 7.3 g/dL (14.0-18.0); LYMPHOCYTES # (AUTO) 0.8 (1.0-3.2); LYMPHOCYTES % 13.6 % (18.0-39.1); MEAN CORPUSCULAR HEMOGLOBIN 32.9 pg (28-32); MEAN CORPUSCULAR HGB CONC 35.4 g/dL (31-35); MEAN CORPUSCULAR VOLUME 92.8 fL (81-99); MONOCYTES # (AUTO) 0.7 (0.2-0.8); MONOCYTES % 12.1 % (4.4-11.3); PLATELET COUNT 273 x10e3/uL (140-360); RED BLOOD COUNT 2.22 x10e6/uL (4.3-5.7); RED CELL DISTRIBUTION WIDTH 14.2 % (11.7-14.4)
[2021-07-16 08:33] LABS: HEMATOCRIT 20.6 % (38.2-49.6)
[2021-07-16] MEDS: FAMOTIDINE 20 MG/2 ML VIAL IV SCH (08:42)
[2021-07-16] MEDS: SUCRALFATE 1 GM TAB PO SCH ×4 (08:42→21:20)
[2021-07-16] MEDS: METOPROLOL TARTRATE 50 MG TAB PO SCH ×2 (08:43→21:20)
[2021-07-16] MEDS: FOLIC ACID 1 MG TAB NG SCH (08:43)
[2021-07-16] MEDS: ZINC SULFATE 220 MG CAP PO SCH (08:44)
[2021-07-16] MEDS: AMLODIPINE BESYLATE 5 MG TAB PO SCH (08:44)
[2021-07-16] MEDS: ASCORBIC ACID 500 MG TAB PO SCH ×2 (08:44→17:02)
[2021-07-16 09:45] VITALS: BP 160/90
[2021-07-16] MEDS: CEFEPIME 1 GM in SODIUM CHLORIDE 0.9% 50ML 50 ML IV SCH (10:44)
[2021-07-16] MEDS: IRON SUCROSE 100 MG in SODIUM CHLORIDE 0.9% 100 ML 100 ML IV SCH (10:44)
[2021-07-16] MEDS: BIVALRIUDIN 250 MG in SODIUM CHLORIDE 0.9% 250ML 250 ML IV SCH ×2 (12:00→12:43)
[2021-07-16] MEDS: PRAMIPEXOLE DIHYDROCHLORIDE 0.25 MG TAB PO SCH (17:02)
[2021-07-16 20:52] VITALS: BP 124/73
[2021-07-16] MEDS: MELATONIN 5 MG TABLET PO SCH (21:19)
[2021-07-16] MEDS: INSULIN GLARGINE 100 UNITS/ML VIAL SQ SCH (21:21)
[2021-07-16] MEDS: ONDANSETRON HCL INJ 2MG/ML 2ML 2 MG/ML VIAL IV PRN (23:41)
[2021-07-17] VITALS (8 sets, daily range): BP systolic 116–157; BP diastolic 65–108
[2021-07-17] MEDS ORDERED: METOCLOPRAMIDE HCL 10 MG/2ML VIAL IV STA (01:15)
[2021-07-17] MEDS: Pantoprazole IV 40 MG in SODIUM CHLORIDE 0.9% 50ML 50 ML IV SCH ×4 (04:48→20:36)
[2021-07-17 05:40] LABS: BASOPHILS % 0.6 % (0.0-1.0); EOSINOPHILS # (AUTO) 0.2 (0.0-0.4); EOSINOPHILS % 2.8 % (0.0-6.0); HEMATOCRIT 21.4 % (38.2-49.6); HEMOGLOBIN 7.8 g/dL (14.0-18.0); LYMPHOCYTES # (AUTO) 0.6 (1.0-3.2); LYMPHOCYTES % 9.1 % (18.0-39.1); MEAN CORPUSCULAR HEMOGLOBIN 33.8 pg (28-32); MEAN CORPUSCULAR HGB CONC 36.4 g/dL (31-35); MEAN CORPUSCULAR VOLUME 92.6 fL (81-99); MONOCYTES # (AUTO) 0.5 (0.2-0.8); MONOCYTES % 7.5 % (4.4-11.3); NEUTROPHILS # (AUTO) 5.2 (2.1-6.9); NEUTROPHILS % 78.1 % (38.7-80.0); PLATELET COUNT 329 x10e3/uL (140-360); RED BLOOD COUNT 2.31 x10e6/uL (4.3-5.7); RED CELL DISTRIBUTION WIDTH 14.1 % (11.7-14.4)
[2021-07-17 05:58] LABS: ALBUMIN 2.2 g/dL (3.5-5.0); ALBUMIN/GLOBULIN RATIO 0.5 (0.8-2.0); ANION GAP 21.5 mmol/L (8-16); CALCIUM 8.1 mg/dL (8.4-10.2); CREATININE, SERUM 7.13 mg/dL (0.72-1.25); POTASSIUM 4.5 mmol/L (3.5-5.1)
[2021-07-17] MEDS: METOCLOPRAMIDE HCL 10 MG/2ML VIAL IV SCH ×3 (06:12→17:39)
[2021-07-17] MEDS: INSULIN LISPRO 100 UNIT/1 ML 3ML VIAL SQ SCH ×5 (07:30→20:25)
[2021-07-17] MEDS: SUCRALFATE 1 GM TAB PO SCH ×4 (08:44→20:36)
[2021-07-17] MEDS: FOLIC ACID 1 MG TAB NG SCH (08:44)
[2021-07-17] MEDS: ASCORBIC ACID 500 MG TAB PO SCH ×2 (08:45→17:03)
[2021-07-17] MEDS: ZINC SULFATE 220 MG CAP PO SCH (08:45)
[2021-07-17] MEDS: METOPROLOL TARTRATE 50 MG TAB PO SCH ×2 (08:45→21:51)
[2021-07-17] MEDS: PRAMIPEXOLE DIHYDROCHLORIDE 0.25 MG TAB PO SCH ×2 (08:45→17:03)
[2021-07-17] MEDS ORDERED: AMLODIPINE BESYLATE 5 MG TAB PO SCH (09:00)
[2021-07-17 09:12] LABS: INR 1.34; PROTHROMBIN TIME 16.8 seconds (11.9-14.5)
[2021-07-17] MEDS: IRON SUCROSE 100 MG in SODIUM CHLORIDE 0.9% 100 ML 100 ML IV SCH (10:01)
[2021-07-17] MEDS: CEFEPIME 1 GM in SODIUM CHLORIDE 0.9% 50ML 50 ML IV SCH (10:57)
[2021-07-17] MEDS: BIVALRIUDIN 250 MG in SODIUM CHLORIDE 0.9% 250ML 250 ML IV SCH (11:35)
[2021-07-17] MEDS ORDERED: AMLODIPINE BESYLATE 5 MG TAB PO ONE (17:00)
[2021-07-17] MEDS: APIXABAN 5 MG TABLET PO SCH (17:03)
[2021-07-17] MEDS: INSULIN GLARGINE 100 UNITS/ML VIAL SQ SCH (20:25)
[2021-07-17] MEDS: MELATONIN 5 MG TABLET PO SCH (20:36)
[2021-07-17] MEDS ORDERED: DORZOLAMIDE-TIM10 ML OP (22:53)
[2021-07-18] VITALS (7 sets, daily range): BP systolic 101–149; BP diastolic 51–77
[2021-07-18] MEDS: Pantoprazole IV 40 MG in SODIUM CHLORIDE 0.9% 50ML 50 ML IV SCH ×5 (00:41→20:03)
[2021-07-18] MEDS: METOCLOPRAMIDE HCL 10 MG/2ML VIAL IV SCH ×4 (00:41→18:42)
[2021-07-18 05:49] LABS: BASOPHILS % 0.3 % (0.0-1.0); EOSINOPHILS # (AUTO) 0.2 (0.0-0.4); EOSINOPHILS % 3.1 % (0.0-6.0); HEMOGLOBIN 7.3 g/dL (14.0-18.0); LYMPHOCYTES # (AUTO) 0.9 (1.0-3.2); LYMPHOCYTES % 14.1 % (18.0-39.1); MEAN CORPUSCULAR HEMOGLOBIN 33.8 pg (28-32); MONOCYTES # (AUTO) 0.6 (0.2-0.8); MONOCYTES % 10.4 % (4.4-11.3); NEUTROPHILS # (AUTO) 4.3 (2.1-6.9); NEUTROPHILS % 70.2 % (38.7-80.0); PLATELET COUNT 294 x10e3/uL (140-360); RED BLOOD COUNT 2.16 x10e6/uL (4.3-5.7); RED CELL DISTRIBUTION WIDTH 14.2 % (11.7-14.4)
[2021-07-18 06:02] LABS: HEMATOCRIT 20.3 % (38.2-49.6)
[2021-07-18 06:05] LABS: ANION GAP 14.1 mmol/L (8-16); CALCIUM 7.9 mg/dL (8.4-10.2); CREATININE, SERUM 4.18 mg/dL (0.72-1.25); POTASSIUM 4.1 mmol/L (3.5-5.1)
[2021-07-18] MEDS: INSULIN LISPRO 100 UNIT/1 ML 3ML VIAL SQ SCH ×4 (07:30→21:11)
[2021-07-18] MEDS: SUCRALFATE 1 GM TAB PO SCH ×4 (09:43→20:51)
[2021-07-18] MEDS: IRON SUCROSE 100 MG in SODIUM CHLORIDE 0.9% 100 ML 100 ML IV SCH (09:44)
[2021-07-18] MEDS: PRAMIPEXOLE DIHYDROCHLORIDE 0.25 MG TAB PO SCH ×2 (09:44→17:11)
[2021-07-18] MEDS: AMLODIPINE BESYLATE 10 MG TAB PO SCH (09:44)
[2021-07-18] MEDS: APIXABAN 5 MG TABLET PO SCH ×2 (09:44→17:11)
[2021-07-18] MEDS: METOPROLOL TARTRATE 50 MG TAB PO SCH ×2 (09:44→20:52)
[2021-07-18] MEDS: FOLIC ACID 1 MG TAB NG SCH (09:44)
[2021-07-18] MEDS: CEFEPIME 1 GM in SODIUM CHLORIDE 0.9% 50ML 50 ML IV SCH (10:27)
[2021-07-18] MEDS ORDERED: SODIUM CHLORIDE 0.9% 250ML 250 ML IV ONE (14:30)
[2021-07-18] MEDS: MELATONIN 5 MG TABLET PO SCH (20:52)
[2021-07-18] MEDS: INSULIN GLARGINE 100 UNITS/ML VIAL SQ SCH (21:11)
[2021-07-19] VITALS (7 sets, daily range): BP systolic 120–144; BP diastolic 67–85
[2021-07-19] MEDS: Pantoprazole IV 40 MG in SODIUM CHLORIDE 0.9% 50ML 50 ML IV SCH ×5 (00:43→21:12)
[2021-07-19] MEDS: METOCLOPRAMIDE HCL 10 MG/2ML VIAL IV SCH ×4 (06:00→17:56)
[2021-07-19 06:29] LABS: BASOPHILS % 0.5 % (0.0-1.0); EOSINOPHILS # (AUTO) 0.2 (0.0-0.4); EOSINOPHILS % 2.6 % (0.0-6.0); HEMOGLOBIN 7.1 g/dL (14.0-18.0); LYMPHOCYTES # (AUTO) 1.2 (1.0-3.2); LYMPHOCYTES % 16.1 % (18.0-39.1); MEAN CORPUSCULAR HEMOGLOBIN 36.2 pg (28-32); MEAN CORPUSCULAR HGB CONC 38.4 g/dL (31-35); MEAN CORPUSCULAR VOLUME 94.4 fL (81-99); MONOCYTES % 12.9 % (4.4-11.3); NEUTROPHILS # (AUTO) 4.9 (2.1-6.9); NEUTROPHILS % 66.4 % (38.7-80.0); PLATELET COUNT 278 x10e3/uL (140-360); RED BLOOD COUNT 1.96 x10e6/uL (4.3-5.7); RED CELL DISTRIBUTION WIDTH 14.6 % (11.7-14.4)
[2021-07-19 06:49] LABS: ANION GAP 18.3 mmol/L (8-16); CREATININE, SERUM 6.25 mg/dL (0.72-1.25); POTASSIUM 4.3 mmol/L (3.5-5.1)
[2021-07-19] MEDS ORDERED: SODIUM CHLORIDE 0.9% 250ML 250 ML IV ONE (07:00)
[2021-07-19 07:02] LABS: HEMATOCRIT 18.5 % (38.2-49.6)
[2021-07-19] MEDS: INSULIN LISPRO 100 UNIT/1 ML 3ML VIAL SQ SCH ×4 (07:30→21:00)
[2021-07-19] MEDS: SUCRALFATE 1 GM TAB PO SCH ×4 (07:30→21:12)
[2021-07-19] MEDS ORDERED: HEPARIN SOD (PORCINE) 5,000 UNIT/ML VIAL ONE (08:51)
[2021-07-19] MEDS: AMLODIPINE BESYLATE 10 MG TAB PO SCH (09:00)
[2021-07-19] MEDS: METOPROLOL TARTRATE 50 MG TAB PO SCH ×2 (09:00→21:12)
[2021-07-19] MEDS: FOLIC ACID 1 MG TAB NG SCH (09:00)
[2021-07-19] MEDS: PRAMIPEXOLE DIHYDROCHLORIDE 0.25 MG TAB PO SCH ×2 (09:00→17:22)
[2021-07-19] MEDS: APIXABAN 5 MG TABLET PO SCH ×2 (09:00→17:22)
[2021-07-19] MEDS: CEFEPIME 1 GM in SODIUM CHLORIDE 0.9% 50ML 50 ML IV SCH (13:36)
[2021-07-19] MEDS: IRON SUCROSE 100 MG in SODIUM CHLORIDE 0.9% 100 ML 100 ML IV SCH (13:36)
[2021-07-19] MEDS: EPOETIN ALFA-EPBX 10,000 UNIT/ML VIAL SC SCH (13:37)
[2021-07-19] MEDS: MELATONIN 5 MG TABLET PO SCH (21:11)
[2021-07-19] MEDS: INSULIN GLARGINE 100 UNITS/ML VIAL SQ SCH (21:11)
[2021-07-20] VITALS (14 sets, daily range): BP systolic 124–141; BP diastolic 69–86
[2021-07-20] MEDS: METOCLOPRAMIDE HCL 10 MG/2ML VIAL IV SCH ×4 (00:05→17:05)
[2021-07-20] MEDS: Pantoprazole IV 40 MG in SODIUM CHLORIDE 0.9% 50ML 50 ML IV SCH ×5 (01:20→22:00)
[2021-07-20] MEDS: INSULIN LISPRO 100 UNIT/1 ML 3ML VIAL SQ SCH ×4 (07:30→21:00)
[2021-07-20 08:21] LABS: BASOPHILS # (AUTO) 0.1 (0.0-0.1); BASOPHILS % 0.7 % (0.0-1.0); EOSINOPHILS # (AUTO) 0.2 (0.0-0.4); HEMATOCRIT 23.1 % (38.2-49.6); LYMPHOCYTES # (AUTO) 1.2 (1.0-3.2); LYMPHOCYTES % 15.8 % (18.0-39.1); MEAN CORPUSCULAR HEMOGLOBIN 31.9 pg (28-32); MEAN CORPUSCULAR HGB CONC 34.6 g/dL (31-35); MONOCYTES # (AUTO) 0.7 (0.2-0.8); NEUTROPHILS # (AUTO) 5.1 (2.1-6.9); NEUTROPHILS % 68.9 % (38.7-80.0); PLATELET COUNT 273 x10e3/uL (140-360); RED BLOOD COUNT 2.51 x10e6/uL (4.3-5.7); RED CELL DISTRIBUTION WIDTH 15.2 % (11.7-14.4)
[2021-07-20] MEDS: SUCRALFATE 1 GM TAB PO SCH ×4 (09:36→21:00)
[2021-07-20] MEDS: FOLIC ACID 1 MG TAB NG SCH (09:36)
[2021-07-20] MEDS: APIXABAN 5 MG TABLET PO SCH ×2 (09:36→21:00)
[2021-07-20] MEDS: METOPROLOL TARTRATE 50 MG TAB PO SCH ×2 (09:37→21:00)
[2021-07-20] MEDS: AMLODIPINE BESYLATE 10 MG TAB PO SCH (09:37)
[2021-07-20] MEDS: PRAMIPEXOLE DIHYDROCHLORIDE 0.25 MG TAB PO SCH ×2 (09:37→17:05)
[2021-07-20] MEDS: IRON SUCROSE 100 MG in SODIUM CHLORIDE 0.9% 100 ML 100 ML IV SCH (10:36)
[2021-07-20] MEDS ORDERED: BISACODYL 10 MG SUPP PR PRN (11:45)
[2021-07-20] MEDS: CEFEPIME 1 GM in SODIUM CHLORIDE 0.9% 50ML 50 ML IV SCH (12:10)
[2021-07-20] MEDS: POLYETHYLENE GLYCOL 3350 17 GM PACK PO SCH (12:45)
[2021-07-20] MEDS ORDERED: EPOETIN ALFA-EPBX 10,000 UNIT/ML VIAL SC SCH (13:45)
[2021-07-20] MEDS: SENNOSIDES 8.6 MG TAB PO SCH (16:11)
[2021-07-20] MEDS: MELATONIN 5 MG TABLET PO SCH (21:00)
[2021-07-21] VITALS (11 sets, daily range): BP systolic 128–141; BP diastolic 77–86
[2021-07-21] MEDS: INSULIN GLARGINE 100 UNITS/ML VIAL SQ SCH ×2 (01:51→21:11)
[2021-07-21] MEDS: METOCLOPRAMIDE HCL 10 MG/2ML VIAL IV SCH ×5 (01:51→23:33)
[2021-07-21] MEDS: Pantoprazole IV 40 MG in SODIUM CHLORIDE 0.9% 50ML 50 ML IV SCH ×5 (04:12→22:12)
[2021-07-21 06:13] LABS: BASOPHILS # (AUTO) 0.1 (0.0-0.1); EOSINOPHILS # (AUTO) 0.2 (0.0-0.4); EOSINOPHILS % 3.4 % (0.0-6.0); HEMATOCRIT 23.2 % (38.2-49.6); HEMOGLOBIN 8.1 g/dL (14.0-18.0); LYMPHOCYTES # (AUTO) 1.1 (1.0-3.2); LYMPHOCYTES % 16.5 % (18.0-39.1); MEAN CORPUSCULAR HEMOGLOBIN 31.9 pg (28-32); MEAN CORPUSCULAR HGB CONC 34.9 g/dL (31-35); MEAN CORPUSCULAR VOLUME 91.3 fL (81-99); MONOCYTES # (AUTO) 0.8 (0.2-0.8); MONOCYTES % 11.6 % (4.4-11.3); NEUTROPHILS # (AUTO) 4.4 (2.1-6.9); NEUTROPHILS % 65.3 % (38.7-80.0); PLATELET COUNT 274 x10e3/uL (140-360); RED BLOOD COUNT 2.54 x10e6/uL (4.3-5.7); RED CELL DISTRIBUTION WIDTH 15.1 % (11.7-14.4)
[2021-07-21] MEDS: INSULIN LISPRO 100 UNIT/1 ML 3ML VIAL SQ SCH ×4 (07:30→21:10)
[2021-07-21] MEDS: POLYETHYLENE GLYCOL 3350 17 GM PACK PO SCH (09:00)
[2021-07-21] MEDS: SENNOSIDES 8.6 MG TAB PO SCH ×2 (09:00→15:21)
[2021-07-21] MEDS: AMLODIPINE BESYLATE 10 MG TAB PO SCH (09:14)
[2021-07-21] MEDS: PRAMIPEXOLE DIHYDROCHLORIDE 0.25 MG TAB PO SCH ×2 (09:14→17:18)
[2021-07-21] MEDS: METOPROLOL TARTRATE 50 MG TAB PO SCH ×2 (09:14→21:09)
[2021-07-21] MEDS: SUCRALFATE 1 GM TAB PO SCH ×4 (09:14→21:09)
[2021-07-21] MEDS: APIXABAN 5 MG TABLET PO SCH ×2 (09:14→21:09)
[2021-07-21] MEDS: FOLIC ACID 1 MG TAB NG SCH (09:14)
[2021-07-21] MEDS: IRON SUCROSE 100 MG in SODIUM CHLORIDE 0.9% 100 ML 100 ML IV SCH (10:05)
[2021-07-21] MEDS: CEFEPIME 1 GM in SODIUM CHLORIDE 0.9% 50ML 50 ML IV SCH (11:48)
[2021-07-21] MEDS: MELATONIN 5 MG TABLET PO SCH (21:09)
[2021-07-22] VITALS (7 sets, daily range): BP systolic 133–142; BP diastolic 68–87
[2021-07-22] MEDS: Pantoprazole IV 40 MG in SODIUM CHLORIDE 0.9% 50ML 50 ML IV SCH ×4 (03:16→21:51)
[2021-07-22] MEDS: METOCLOPRAMIDE HCL 10 MG/2ML VIAL IV SCH ×3 (05:10→17:02)
[2021-07-22 05:19] LABS: BASOPHILS # (AUTO) 0.1 (0.0-0.1); BASOPHILS % 0.8 % (0.0-1.0); EOSINOPHILS # (AUTO) 0.2 (0.0-0.4); EOSINOPHILS % 3.2 % (0.0-6.0); HEMATOCRIT 23.7 % (38.2-49.6); HEMOGLOBIN 8.1 g/dL (14.0-18.0); LYMPHOCYTES # (AUTO) 1.1 (1.0-3.2); LYMPHOCYTES % 16.9 % (18.0-39.1); MEAN CORPUSCULAR HEMOGLOBIN 31.4 pg (28-32); MEAN CORPUSCULAR HGB CONC 34.2 g/dL (31-35); MEAN CORPUSCULAR VOLUME 91.9 fL (81-99); MONOCYTES # (AUTO) 0.6 (0.2-0.8); NEUTROPHILS # (AUTO) 4.2 (2.1-6.9); NEUTROPHILS % 66.8 % (38.7-80.0); PLATELET COUNT 272 x10e3/uL (140-360); RED BLOOD COUNT 2.58 x10e6/uL (4.3-5.7); RED CELL DISTRIBUTION WIDTH 14.6 % (11.7-14.4)
[2021-07-22 05:40] LABS: ANION GAP 16.2 mmol/L (8-16); CALCIUM 8.2 mg/dL (8.4-10.2); CREATININE, SERUM 6.88 mg/dL (0.72-1.25); POTASSIUM 4.2 mmol/L (3.5-5.1)
[2021-07-22] MEDS: INSULIN LISPRO 100 UNIT/1 ML 3ML VIAL SQ SCH ×4 (07:30→21:00)
[2021-07-22] MEDS: SUCRALFATE 1 GM TAB PO SCH ×4 (08:04→21:51)
[2021-07-22] MEDS: FOLIC ACID 1 MG TAB NG SCH (08:06)
[2021-07-22] MEDS: SENNOSIDES 8.6 MG TAB PO SCH ×3 (08:06→17:00)
[2021-07-22] MEDS: PRAMIPEXOLE DIHYDROCHLORIDE 0.25 MG TAB PO SCH ×2 (08:06→17:00)
[2021-07-22] MEDS: APIXABAN 5 MG TABLET PO SCH ×2 (08:06→21:51)
[2021-07-22] MEDS: POLYETHYLENE GLYCOL 3350 17 GM PACK PO SCH (08:22)
[2021-07-22] MEDS: IRON SUCROSE 100 MG in SODIUM CHLORIDE 0.9% 100 ML 100 ML IV SCH (08:22)
[2021-07-22] MEDS: METOPROLOL TARTRATE 50 MG TAB PO SCH ×2 (08:44→21:51)
[2021-07-22] MEDS: AMLODIPINE BESYLATE 10 MG TAB PO SCH (08:44)
[2021-07-22] MEDS ORDERED: POLYETHYLENE GLYCOL 3350 17 GM PACK PO PRN (09:00)
[2021-07-22] MEDS: DORZOLAMIDE/TIMOLOL (OPTH SOL) 10 ML DRPETTE OP SCH ×2 (09:49→17:02)
[2021-07-22] MEDS: CEFEPIME 1 GM in SODIUM CHLORIDE 0.9% 50ML 50 ML IV SCH (11:40)
[2021-07-22] MEDS: EPOETIN ALFA-EPBX 10,000 UNIT/ML VIAL SC SCH (13:27)
[2021-07-22] MEDS ORDERED: HEPARIN SOD (PORCINE) 1000 UNIT/ML SDV ONE (16:59)
[2021-07-22] MEDS: MELATONIN 5 MG TABLET PO SCH (21:00)
[2021-07-23] VITALS (9 sets, daily range): BP systolic 123–157; BP diastolic 66–89
[2021-07-23] MEDS: METOCLOPRAMIDE HCL 10 MG/2ML VIAL IV SCH ×4 (01:07→16:08)
[2021-07-23] MEDS: Pantoprazole IV 40 MG in SODIUM CHLORIDE 0.9% 50ML 50 ML IV SCH ×5 (01:07→20:42)
[2021-07-23 06:25] LABS: BASOPHILS # (AUTO) 0.1 (0.0-0.1); BASOPHILS % 0.9 % (0.0-1.0); EOSINOPHILS # (AUTO) 0.1 (0.0-0.4); EOSINOPHILS % 1.9 % (0.0-6.0); HEMOGLOBIN 8.5 g/dL (14.0-18.0); LYMPHOCYTES % 13.3 % (18.0-39.1); MEAN CORPUSCULAR HEMOGLOBIN 30.2 pg (28-32); MEAN CORPUSCULAR HGB CONC 32.7 g/dL (31-35); MEAN CORPUSCULAR VOLUME 92.5 fL (81-99); MONOCYTES # (AUTO) 0.5 (0.2-0.8); MONOCYTES % 7.1 % (4.4-11.3); NEUTROPHILS # (AUTO) 5.6 (2.1-6.9); PLATELET COUNT 267 x10e3/uL (140-360); RED BLOOD COUNT 2.81 x10e6/uL (4.3-5.7); RED CELL DISTRIBUTION WIDTH 14.5 % (11.7-14.4)
[2021-07-23] MEDS: INSULIN LISPRO 100 UNIT/1 ML 3ML VIAL SQ SCH ×4 (07:30→20:43)
[2021-07-23] MEDS: DORZOLAMIDE/TIMOLOL (OPTH SOL) 10 ML DRPETTE OP SCH ×2 (08:36→16:09)
[2021-07-23] MEDS: FOLIC ACID 1 MG TAB NG SCH (08:36)
[2021-07-23] MEDS: SUCRALFATE 1 GM TAB PO SCH ×4 (08:36→20:42)
[2021-07-23] MEDS: AMLODIPINE BESYLATE 10 MG TAB PO SCH (08:37)
[2021-07-23] MEDS: METOPROLOL TARTRATE 50 MG TAB PO SCH ×2 (08:37→21:39)
[2021-07-23] MEDS: SENNOSIDES 8.6 MG TAB PO SCH ×2 (08:37→16:17)
[2021-07-23] MEDS: APIXABAN 5 MG TABLET PO SCH ×2 (08:37→20:42)
[2021-07-23] MEDS: PRAMIPEXOLE DIHYDROCHLORIDE 0.25 MG TAB PO SCH ×2 (08:38→16:17)
[2021-07-23] MEDS: IRON SUCROSE 100 MG in SODIUM CHLORIDE 0.9% 100 ML 100 ML IV SCH (08:38)
[2021-07-23] MEDS: CEFEPIME 1 GM in SODIUM CHLORIDE 0.9% 50ML 50 ML IV SCH (11:01)
[2021-07-23] MEDS: MELATONIN 5 MG TABLET PO SCH (20:43)
[2021-07-24] VITALS (9 sets, daily range): BP systolic 99–154; BP diastolic 56–87
[2021-07-24] MEDS: METOCLOPRAMIDE HCL 10 MG/2ML VIAL IV SCH ×4 (01:33→18:23)
[2021-07-24] MEDS: Pantoprazole IV 40 MG in SODIUM CHLORIDE 0.9% 50ML 50 ML IV SCH ×5 (01:33→21:15)
[2021-07-24 06:33] LABS: BASOPHILS # (AUTO) 0.1 (0.0-0.1); EOSINOPHILS # (AUTO) 0.2 (0.0-0.4); EOSINOPHILS % 2.5 % (0.0-6.0); HEMATOCRIT 27.1 % (38.2-49.6); HEMOGLOBIN 8.9 g/dL (14.0-18.0); LYMPHOCYTES # (AUTO) 1.2 (1.0-3.2); LYMPHOCYTES % 17.4 % (18.0-39.1); MEAN CORPUSCULAR HEMOGLOBIN 30.1 pg (28-32); MEAN CORPUSCULAR HGB CONC 32.8 g/dL (31-35); MEAN CORPUSCULAR VOLUME 91.6 fL (81-99); MONOCYTES # (AUTO) 0.6 (0.2-0.8); MONOCYTES % 8.5 % (4.4-11.3); NEUTROPHILS # (AUTO) 4.6 (2.1-6.9); NEUTROPHILS % 68.2 % (38.7-80.0); PLATELET COUNT 275 x10e3/uL (140-360); RED BLOOD COUNT 2.96 x10e6/uL (4.3-5.7); RED CELL DISTRIBUTION WIDTH 14.5 % (11.7-14.4)
[2021-07-24] MEDS: INSULIN LISPRO 100 UNIT/1 ML 3ML VIAL SQ SCH ×4 (07:30→21:20)
[2021-07-24] MEDS: SUCRALFATE 1 GM TAB PO SCH ×4 (08:30→21:15)
[2021-07-24] MEDS: FOLIC ACID 1 MG TAB NG SCH (09:31)
[2021-07-24] MEDS: METOPROLOL TARTRATE 50 MG TAB PO SCH ×2 (09:31→21:16)
[2021-07-24] MEDS: APIXABAN 5 MG TABLET PO SCH ×2 (09:31→21:15)
[2021-07-24] MEDS: PRAMIPEXOLE DIHYDROCHLORIDE 0.25 MG TAB PO SCH ×2 (09:32→18:23)
[2021-07-24] MEDS: SENNOSIDES 8.6 MG TAB PO SCH ×2 (09:32→18:23)
[2021-07-24] MEDS: AMLODIPINE BESYLATE 10 MG TAB PO SCH (09:32)
[2021-07-24] MEDS: IRON SUCROSE 100 MG in SODIUM CHLORIDE 0.9% 100 ML 100 ML IV SCH (09:35)
[2021-07-24] MEDS: DORZOLAMIDE/TIMOLOL (OPTH SOL) 10 ML DRPETTE OP SCH ×2 (09:35→18:23)
[2021-07-24] MEDS: CEFEPIME 1 GM in SODIUM CHLORIDE 0.9% 50ML 50 ML IV SCH (11:16)
[2021-07-24] MEDS ORDERED: HEPARIN SOD (PORCINE) 1000 UNIT/ML SDV ONE (13:34)
[2021-07-24] MEDS: EPOETIN ALFA-EPBX 10,000 UNIT/ML VIAL SC SCH (14:28)
[2021-07-24] MEDS: MELATONIN 5 MG TABLET PO SCH (21:16)
[2021-07-25] VITALS (8 sets, daily range): BP systolic 103–139; BP diastolic 49–76
[2021-07-25] MEDS: METOCLOPRAMIDE HCL 10 MG/2ML VIAL IV SCH ×2 (00:20→05:07)
[2021-07-25] MEDS: Pantoprazole IV 40 MG in SODIUM CHLORIDE 0.9% 50ML 50 ML IV SCH ×2 (02:08→06:55)
[2021-07-25 06:35] LABS: CALCIUM 8.9 mg/dL (8.4-10.2); CREATININE, SERUM 4.88 mg/dL (0.72-1.25)
[2021-07-25] MEDS: INSULIN LISPRO 100 UNIT/1 ML 3ML VIAL SQ SCH ×4 (07:30→21:29)
[2021-07-25] MEDS: SUCRALFATE 1 GM TAB PO SCH ×4 (07:49→21:22)
[2021-07-25] MEDS: AMLODIPINE BESYLATE 10 MG TAB PO SCH (08:45)
[2021-07-25] MEDS: APIXABAN 5 MG TABLET PO SCH ×2 (08:47→21:22)
[2021-07-25] MEDS: IRON SUCROSE 100 MG in SODIUM CHLORIDE 0.9% 100 ML 100 ML IV SCH (08:47)
[2021-07-25] MEDS: FOLIC ACID 1 MG TAB NG SCH (08:47)
[2021-07-25] MEDS: PRAMIPEXOLE DIHYDROCHLORIDE 0.25 MG TAB PO SCH ×2 (08:47→16:23)
[2021-07-25] MEDS: DORZOLAMIDE/TIMOLOL (OPTH SOL) 10 ML DRPETTE OP SCH ×2 (08:47→16:23)
[2021-07-25] MEDS: METOPROLOL TARTRATE 50 MG TAB PO SCH ×2 (08:47→21:23)
[2021-07-25] MEDS: SENNOSIDES 8.6 MG TAB PO SCH ×2 (08:48→16:23)
[2021-07-25] MEDS ORDERED: SODIUM CHLORIDE 0.9% 50ML 100 ML ONE (09:04)
[2021-07-25] MEDS: PANTOPRAZOLE SOD 40 MG TABEC PO SCH (16:23)
[2021-07-25] MEDS: MELATONIN 5 MG TABLET PO SCH (21:23)
[2021-07-26 00:15] VITALS: BP 131/72
[2021-07-26 04:23] VITALS: BP 119/73
[2021-07-26 06:38] LABS: BASOPHILS # (AUTO) 0.1 (0.0-0.1); EOSINOPHILS # (AUTO) 0.2 (0.0-0.4); EOSINOPHILS % 2.6 % (0.0-6.0); HEMATOCRIT 26.6 % (38.2-49.6); HEMOGLOBIN 8.6 g/dL (14.0-18.0); LYMPHOCYTES # (AUTO) 1.2 (1.0-3.2); LYMPHOCYTES % 14.8 % (18.0-39.1); MEAN CORPUSCULAR HEMOGLOBIN 30.2 pg (28-32); MEAN CORPUSCULAR HGB CONC 32.3 g/dL (31-35); MEAN CORPUSCULAR VOLUME 93.3 fL (81-99); MONOCYTES # (AUTO) 0.6 (0.2-0.8); MONOCYTES % 7.1 % (4.4-11.3); NEUTROPHILS % 72.3 % (38.7-80.0); PLATELET COUNT 248 x10e3/uL (140-360); RED BLOOD COUNT 2.85 x10e6/uL (4.3-5.7); RED CELL DISTRIBUTION WIDTH 15.2 % (11.7-14.4)
[2021-07-26 07:05] LABS: CALCIUM 8.7 mg/dL (8.4-10.2); CREATININE, SERUM 7.09 mg/dL (0.72-1.25)
[2021-07-26] MEDS: INSULIN LISPRO 100 UNIT/1 ML 3ML VIAL SQ SCH (07:30)
[2021-07-26] MEDS: SUCRALFATE 1 GM TAB PO SCH (08:41)
[2021-07-26] MEDS: PRAMIPEXOLE DIHYDROCHLORIDE 0.25 MG TAB PO SCH (09:03)
[2021-07-26] MEDS: APIXABAN 5 MG TABLET PO SCH (09:03)
[2021-07-26] MEDS: DORZOLAMIDE/TIMOLOL (OPTH SOL) 10 ML DRPETTE OP SCH (09:03)
[2021-07-26] MEDS: METOPROLOL TARTRATE 50 MG TAB PO SCH (09:03)
[2021-07-26] MEDS: AMLODIPINE BESYLATE 10 MG TAB PO SCH (09:04)
[2021-07-26] MEDS: PANTOPRAZOLE SOD 40 MG TABEC PO SCH (09:04)
[2021-07-26] MEDS: SENNOSIDES 8.6 MG TAB PO SCH (09:04)
[2021-07-26 09:49] VITALS: BP 143/79
[2021-07-26 12:05] VITALS: BP 143/79
== END 2021-07-26 11:53 | disposition home or self-care (01) | DRG 870 ==
LOC: ER 22:19 → ERHOLD 06-18 06:58 → IMCU 06-19 20:52 → COVIDICU 06-22 22:05 → IMCU 07-14 15:59
PROVIDERS: ADMIT Internal Medicine; ATTEND Internal Medicine
PROC: 5A0955A Assistance with Respiratory Ventilation, Greater than 96 Consecutive Hours, High Flow/Velocity Cannula (ICD-10-PCS; 2021-06-18)
PROC: 02HV33Z Insertion of Infusion Device into Superior Vena Cava, Percutaneous Approach (ICD-10-PCS; 2021-06-18)
PROC: XW043E5 Introduction of Remdesivir Anti-infective into Central Vein, Percutaneous Approach, New Technology Group 5 (ICD-10-PCS; 2021-06-18)
PROC: 5A1955Z Respiratory Ventilation, Greater than 96 Consecutive Hours (ICD-10-PCS; principal; 2021-06-20)
PROC: 0BH17EZ Insertion of Endotracheal Airway into Trachea, Via Natural or Artificial Opening (ICD-10-PCS; 2021-06-20)
PROC: 02HV33Z Insertion of Infusion Device into Superior Vena Cava, Percutaneous Approach (ICD-10-PCS; 2021-06-20)
PROC: 3E0433Z Introduction of Anti-inflammatory into Central Vein, Percutaneous Approach (ICD-10-PCS; 2021-06-20)
PROC: 3E043XZ Introduction of Vasopressor into Central Vein, Percutaneous Approach (ICD-10-PCS; 2021-06-20)
PROC: 02HV33Z Insertion of Infusion Device into Superior Vena Cava, Percutaneous Approach (ICD-10-PCS; 2021-06-24)
PROC: B548ZZA Ultrasonography of Superior Vena Cava, Guidance (ICD-10-PCS; 2021-06-24)
PROC: 5A1D70Z Performance of Urinary Filtration, Intermittent, Less than 6 Hours Per Day (ICD-10-PCS; 2021-06-24)
PROC: 02HV33Z Insertion of Infusion Device into Superior Vena Cava, Percutaneous Approach (ICD-10-PCS; 2021-06-28)
PROC: 0JH63XZ Insertion of Tunneled Vascular Access Device into Chest Subcutaneous Tissue and Fascia, Percutaneous Approach (ICD-10-PCS; 2021-07-09)
PROC: 02HV33Z Insertion of Infusion Device into Superior Vena Cava, Percutaneous Approach (ICD-10-PCS; 2021-07-09)
PROC: 30243N1 Transfusion of Nonautologous Red Blood Cells into Central Vein, Percutaneous Approach (ICD-10-PCS; 2021-07-10)
DX: A41.89 Other specified sepsis (principal); S82.041A Displaced comminuted fracture of right patella, initial encounter for closed fracture; U07.1 COVID-19; J12.82 Pneumonia due to coronavirus disease 2019; J96.01 Acute respiratory failure with hypoxia; G93.41 Metabolic encephalopathy; N17.0 Acute kidney failure with tubular necrosis; R65.21 Severe sepsis with septic shock; J18.9 Pneumonia, unspecified organism; K72.00 Acute and subacute hepatic failure without coma; I82.402 Acute embolism and thrombosis of unspecified deep veins of left lower extremity; I82.621 Acute embolism and thrombosis of deep veins of right upper extremity; B19.9 Unspecified viral hepatitis without hepatic coma; D62 Acute posthemorrhagic anemia; M79.81 Nontraumatic hematoma of soft tissue; I10 Essential (primary) hypertension; E83.52 Hypercalcemia; E11.65 Type 2 diabetes mellitus with hyperglycemia; D69.6 Thrombocytopenia, unspecified; S92.911A Unspecified fracture of right toe(s), initial encounter for closed fracture; D50.0 Iron deficiency anemia secondary to blood loss (chronic); E87.5 Hyperkalemia; W01.0XXA Fall on same level from slipping, tripping and stumbling without subsequent striking against object, initial encounter; Y93.89 Activity, other specified; Y92.230 Patient room in hospital as the place of occurrence of the external cause; E66.9 Obesity, unspecified; Z68.31 Body mass index [BMI] 31.0-31.9, adult
CPT/HCPCS: 31500; 36415; 36558; 36569; 36584; 36600; 70450; 71045; 74018; 74176; 74470; 76700; 76770; 76937; 77001; 80048; 80053; 80061; 81001; 81015; 82150; 82270; 82550; 82553; 82607; 82728; 82746; 82805; 82948; 83010; 83036; 83540; 83615; 83690; 83735; 84100; 84443; 84466; 84484; 85007; 85014; 85018; 85025; 85027; 85045; 85300; 85384; 85610; 85730; 86022; 86140; 86704; 86707; 86850; 86900; 86920; 86922; 87040; 87071; 87186; 87205; 87340; 90962; 93970; 93971; 94002; 94003; 94660; 95812; 96360; 96372; 97139; 99285; J0330; J0360; J0456; J0583; J0692; J0696; J1100; J1644; J1650; J1756; J1815; J1817; J1940; J2001; J2020; J2060; J2150; J2185; J2250; J2405; J2543; J2550; J2765; J3010; J3370; J3480; J7030; J7050; J7121; P9016; U0002

== ENCOUNTER 2023-03-11 23:19 | Emergency (ER) | payer SELFPAY ==
[~2023-03-11] VITALS: Ht 182.9 cm; Wt 96.2 kg
[~2023-03-11 23:19] MED LIST: DORZOLAMIDE-TIM10 ML OP
[2023-03-11] MEDS ORDERED: SODIUM CHLORIDE 0.9% 1000ML 1,000 ML IV STA (23:36)
[2023-03-11 23:54] LABS: BASOPHILS # (AUTO) 0.1 (0.0-0.1); BASOPHILS % 0.9 % (0.0-1.0); EOSINOPHILS # (AUTO) 0.3 (0.0-0.4); EOSINOPHILS % 4.2 % (0.0-6.0); HEMATOCRIT 41.5 % (38.2-49.6); HEMOGLOBIN 13.8 g/dL (14.0-18.0); LYMPHOCYTES # (AUTO) 1.8 (1.0-3.2); LYMPHOCYTES % 22.6 % (18.0-39.1); MEAN CORPUSCULAR HEMOGLOBIN 29.6 pg (28-32); MEAN CORPUSCULAR HGB CONC 33.3 g/dL (31-35); MEAN CORPUSCULAR VOLUME 89.1 fL (81-99); MONOCYTES # (AUTO) 0.6 (0.2-0.8); NEUTROPHILS # (AUTO) 5.2 (2.1-6.9); PLATELET COUNT 203 x10e3/uL (140-360); RED BLOOD COUNT 4.66 x10e6/uL (4.3-5.7); RED CELL DISTRIBUTION WIDTH 12.4 % (11.7-14.4)
[2023-03-12 00:13] LABS: ALBUMIN 3.9 g/dL (3.5-5.0); ALBUMIN/GLOBULIN RATIO 1.2 (0.8-2.0); ANION GAP 14.1 mmol/L (8-16); CALCIUM 9.1 mg/dL (8.4-10.2); CREATININE, SERUM 1.49 mg/dL (0.72-1.25); POTASSIUM 4.1 mmol/L (3.5-5.1)
[2023-03-12 00:20] LABS: CREATINE KINASE MB 2.7 ng/mL (0-5.0)
[2023-03-12] MEDS ORDERED: METOCLOPRAMIDE HCL 10 MG/2ML VIAL IV STA (00:50)
[2023-03-12] MEDS ORDERED: DIPHENHYDRAMINE HCL INJ 50 MG/ML VIAL IV STA (00:50)
[2023-03-12] MEDS ORDERED: HYDRALAZINE HCL 20 MG/ML VIAL IV STA (02:10)
[2023-03-12] MEDS ORDERED: ACETAMINOPHEN 325 MG TAB PO STA (02:10)
[2023-03-12] MEDS ORDERED: FIORICET 50-301 EACH PO (02:38)
[2023-03-12 02:44] VITALS: BP 168/94; PULSE 84; TEMP 98.1
[2023-03-12 02:46] VITALS: O2SAT 95
== END 2023-03-12 02:41 | disposition home or self-care (01) ==
LOC: ER 23:25
DX: R51.9 Headache, unspecified (principal); I16.0 Hypertensive urgency; R73.9 Hyperglycemia, unspecified; I10 Essential (primary) hypertension
CPT/HCPCS: 36415; 70450; 71046; 80053; 82550; 82553; 83880; 84484; 85025; 93005; 99284; J0360; J1200; J2765; J7030

== ENCOUNTER 2023-10-07 22:59 | Emergency (ER) | payer BC, SELFPAY ==
[~2023-10-07] VITALS: Ht 182.9 cm; Wt 99.8 kg
[~2023-10-07 22:59] MED LIST changes: +FIORICET 50-301 EACH PO
[2023-10-07] MEDS ORDERED: SODIUM CHLORIDE 0.9% 1000ML 1,000 ML IV STA (23:06)
[2023-10-07] MEDS ORDERED: HYDRALAZINE HCL 20 MG/ML VIAL IV STA (23:06)
[2023-10-07 23:27] VITALS: BP 218/116
[2023-10-07 23:32] LABS: BASOPHILS # (AUTO) 0.1 (0.0-0.1); BASOPHILS % 0.7 % (0.0-1.0); EOSINOPHILS # (AUTO) 0.2 (0.0-0.4); HEMATOCRIT 42.2 % (38.2-49.6); HEMOGLOBIN 14.2 g/dL (14.0-18.0); LYMPHOCYTES # (AUTO) 1.9 (1.0-3.2); LYMPHOCYTES % 24.8 % (18.0-39.1); MEAN CORPUSCULAR HEMOGLOBIN 29.6 pg (28-32); MEAN CORPUSCULAR HGB CONC 33.6 g/dL (31-35); MEAN CORPUSCULAR VOLUME 88.1 fL (81-99); MONOCYTES # (AUTO) 0.5 (0.2-0.8); MONOCYTES % 6.3 % (4.4-11.3); NEUTROPHILS # (AUTO) 4.9 (2.1-6.9); NEUTROPHILS % 66.1 % (38.7-80.0); PLATELET COUNT 173 x10e3/uL (140-360); RED BLOOD COUNT 4.79 x10e6/uL (4.3-5.7); RED CELL DISTRIBUTION WIDTH 12.3 % (11.7-14.4); WHITE BLOOD COUNT 7.47 x10e3/uL (4.8-10.8)
[2023-10-07 23:44] LABS: ALANINE AMINOTRANSFERASE 23 IU/L (0-55); ALBUMIN 4.1 g/dL (3.5-5.0); ALBUMIN/GLOBULIN RATIO 1.6 (0.8-2.0); ALKALINE PHOSPHATASE 61 IU/L (40-150); ANION GAP 12.5 mmol/L (8-16); BILIRUBIN,TOTAL 0.8 mg/dL (0.2-1.2); BLOOD UREA NITROGEN 23 mg/dL (7-26); BUN/CREATININE RATIO 19 (6-25); CALCIUM 9.2 mg/dL (8.4-10.2); CARBON DIOXIDE 26 mmol/L (22-29); CHLORIDE 107 mmol/L (98-107); CREATINE KINASE 285 IU/L (30-200); CREATININE, SERUM 1.22 mg/dL (0.72-1.25); EST GLOMERULAR FILTRATION RATE 70 ML/MIN (>=60); GLUCOSE 171 mg/dL (74-118); POTASSIUM 3.5 mmol/L (3.5-5.1); SODIUM 142 mmol/L (136-145); TOTAL PROTEIN 6.6 g/dL (6.5-8.1)
[2023-10-08 00:47] LABS: TROPONIN I < 0.001 ng/mL (0-0.300)
[2023-10-08 01:20] VITALS: O2SAT 96
== END 2023-10-08 01:30 | disposition home or self-care (01) ==
LOC: ER 23:06
DX: I16.0 Hypertensive urgency (principal); R51.9 Headache, unspecified; I10 Essential (primary) hypertension
CPT/HCPCS: 36415; 70450; 71045; 80053; 82550; 83690; 83880; 84484; 85025; 93005; 99284; J0360; J7030